=== PATIENT | female | born 1960 | race Caucasian/White ===

== ENCOUNTER → 2022-05-07 01:56 | Outpatient (CLI) | payer MEDICAID, SELFPAY ==
--- NOTE | 2022-05-07 08:15 | DI.CT_ITS ---
Exam(s) CT HEAD WO/W EXAM: CT HEAD WO/W CLINICAL HISTORY: stated hx of brain tumor? Pt poor historian,headache, r51.9. TECHNIQUE: Imaging Protocol: Axial computed tomography images of the with coronal and sagittal refo rmatted images were created and reviewed. CONTRAST MATERIAL: Intravenous: Omnipaque 350 Contrast volume:100 ml COMPARISON: No exams were available for comparison FINDINGS: Ventricles and Extra axial spaces: Normal in size and morphology for the patient's age. There is a qu estion of small bilateral choroid plexus cysts without significant dilatation of the ventricles. Thi s is of doubtful clinical significance. Hemorrhage: None. Cerebral parenchyma: Normal. Enhancement: No suspicious enhancement. Midline shift: None. Brainstem/Cerebellum: Normal. Calvarium: Normal. Visualized Paranasal sinuses/Mastoids: Clear. IMPRESSION: No evidence of a brain tumor, encephalomalacia or craniotomy defect. Small bilateral choroid plexus cysts, incidental finding.. RADIATION DOSE DELIVERED: 1,278.35mGy.cm Total DLP 1,278.35mGy.cm Total DLP DATA REPOSITORY: All CT scans at this facility are submitted to the National Radiology Data Registry (NRDR) Dose Index Registry (DIR) with the [employer] (ACR). RADIATION OPTIMIZATION: All CT scans at this facility use at least one of these dose optimization te chniques: automated exposure control; mA and/or kV adjustment per patient size (includes targeted exa ms where dose is matched to clinical indication); or iterative reconstruction.
[2022-05-07] MEDS: Omnipaque 350 MG/ML 100 ML BTL IV (15:56)
== END ==
PROVIDERS: PCP Nurse Practitioner; Visit Provider Nurse Practitioner
DX: R51.9 Headache, unspecified (principal)
CPT/HCPCS: 70470; J3490

== ENCOUNTER → 2022-05-20 01:10 | Outpatient (CLI) | payer MEDICAID, SELFPAY ==
--- NOTE | 2022-05-20 07:15 | DI.MAMMO_ITS ---
Exam(s) MAMMO SCREENING EXAM: MAMMO SCREENING CLINICAL HISTORY: screening,Z12.39. TECHNIQUE: Bilateral full field digital CC and MLO mammographic images were obtained with 3D tomosyn thesis and utilizing computer aided detection (CAD). COMPARISON: None. This is a baseline mammogram on 61-year-old patient FINDINGS: There are no CAD designations. There are no new spiculated masses nor malignant appearing microcalcification groups. There is no significant architectural distortion nor skin thickening-retraction. IMPRESSION: No radiographic evidence of malignancy. BI-RADS Category 1 - Negative Breast Density - Category B - Scattered areas of fibroglandular density Breast density Category C or D implies that the patient has dense breast tissue. Dense breast tissue can make it harder to find cancer on a mammogram. Dense breast tissue is also associated with an incr eased risk of breast cancer. This information about the result of the mammogram report was provided to the patient to raise their awareness. Use this report when you speak with the patient about their risks for breast cancer, which includes their family history. At that time, you may recommend additional screening tests (Ultrasoun d or MRI) as these tests may add significant information. A negative radiographic report should not delay biopsy if a dominant or clinically suspicious mass is present. Up to ten percent of cancers are not identified on mammography. A negative report may reinforce clinical impression. Adenosis and dense breasts may obscure an underlying neoplasm. False positive reports average 6 to 10%. Patient will receive a letter notifying them of these results.
== END ==
PROVIDERS: PCP Nurse Practitioner; Visit Provider Nurse Practitioner
DX: Z12.31 Encounter for screening mammogram for malignant neoplasm of breast (principal)
CPT/HCPCS: 77063; 77067

== ENCOUNTER → 2022-06-17 02:07 | Outpatient (CLI) | payer MEDICAID, SELFPAY ==
--- NOTE | 2022-06-17 07:45 | DI.RAD_ITS ---
Exam(s) XR LUMBAR SPINE COMPLETE EXAM: XR LUMBAR SPINE COMPLETE CLINICAL HISTORY: low back pain,scoliosis, m41.9. TECHNIQUE: 2D digital imaging was performed. Five views. COMPARISON: No exams were available for comparison FINDINGS: BONES: No fracture or destructive lesion. No compression fracture. Endplate osteophytes are noted th roughout. DISKS: Severe narrowing of the L4-5 disc space eccentric toward the right. Severe narrowing of the L 5-S1 disc space. Mild narrowing of the L1-2 and L2-3 disc spaces eccentric toward the left. ALIGNMENT: This dextroscoliosis centered at the thoracolumbar junction. No spondylolysis or spondylo listhesis. SOFT TISSUE: Normal. SI joints: Spurring inferior SI joints. IMPRESSION: Degenerative changes and scoliosis. DATA REPOSITORY: RADIATION DOSE DELIVERED:
--- NOTE | 2022-06-17 07:45 | DI.RAD_ITS ---
Exam(s) XR THORACIC SPINE COMPLETE EXAM: XR THORACIC SPINE COMPLETE CLINICAL HISTORY: scoliosis,back pain, m41.9. TECHNIQUE: 2D digital imaging was performed. Three views. COMPARISON: No exams were available for comparison FINDINGS: BONES: There is no fracture or destructive lesion. Endplate osteophytes are noted in the mid to lower thoracic region. ALIGNMENT: Severe dextro rotoscoliosis at the thoracolumbar junction. Moderate leftward curvature in the thoracic region. SOFT TISSUE: Visualized lungs are clear. IMPRESSION: Severe scoliosis. DATA REPOSITORY: RADIATION DOSE DELIVERED:
== END ==
PROVIDERS: PCP Nurse Practitioner; Visit Provider Family Medicine
DX: M41.86 Other forms of scoliosis, lumbar region; M41.84 Other forms of scoliosis, thoracic region; M47.816 Spondylosis without myelopathy or radiculopathy, lumbar region
CPT/HCPCS: 72072; 72110

== ENCOUNTER 2022-10-17 00:20 | Outpatient (CLI) | payer MEDICAID, SELFPAY ==
--- NOTE | 2022-10-17 | DI.CT_ITS ---
Exam(s) CT THORACIC SPINE WO EXAM: CT THORACIC SPINE WO CLINICAL HISTORY: SCOLIOSIS OF THORACOLUMBAR REGION DUE TO DEGENERATIVE DISEASE, M41.55. TECHNIQUE: Imaging Protocol: Axial computed tomography images with coronal and sagittal reformatted images were created and reviewed. COMPARISON: CR XR THORACIC SPINE COMPLETE from 06/17/2022 FINDINGS: Bones: No fractures or dislocations are seen. There is a reverse S-type scoliosis of the thoracic spi ne. There are degenerative changes present throughout the thoracic spine with disc space narrowing a nd marginal osteophytes present. There is mild neural foraminal narrowing on the right at C4-5 and C 5-C6. Soft tissues: The soft tissues of the chest are unremarkable. No large disk herniations are identifie d. IMPRESSION: 1. Multilevel degenerative changes in the lumbar spine. 2. Reverse S-type scoliosis of the thoracic spine. RADIATION DOSE DELIVERED: Total DLP Total DLP DATA REPOSITORY: All CT scans at this facility are submitted to the National Radiology Data Registry (NRDR) Dose Index Registry (DIR) with the [employer] (ACR). RADIATION OPTIMIZATION: All CT scans at this facility use at least one of these dose optimization te chniques: automated exposure control; mA and/or kV adjustment per patient size (includes targeted exa ms where dose is matched to clinical indication); or iterative reconstruction.
--- NOTE | 2022-10-17 | DI.CT_ITS ---
Exam(s) CT LUMBAR SPINE WO EXAM: CT LUMBAR SPINE WO CLINICAL HISTORY: SCOLIOSIS OF THORACOLUMBAR REGION,DDD,M41.55,DIFFUSE SPINE PAIN,ABNL POSTUR. TECHNIQUE: Imaging Protocol: Axial computed tomography images with coronal and sagittal reformatted images were created and reviewed. COMPARISON: CR XR LUMBAR SPINE COMPLETE from 06/17/2022 FINDINGS: Bones: No fractures or dislocations are seen. There is a right convex curvature of the upper thoracic spine. No suspicious lytic or sclerotic lesions are seen. Mild degenerative changes are present th roughout the spine with endplate osteophytes present. There is a vacuum disc and disc space narrowin g at L5-S1. No significant central spinal canal stenosis is present. There is mild narrowing of the right L5-S1 neural foramen. The remaining neural foramen are patent. Soft tissues: The soft tissues of the visualized abdomen and chest are unremarkable. No large disk he rniations are identified. IMPRESSION: 1. No acute fracture or subluxation in the lumbar spine. 2. Mild degenerative changes seen in the lumbar spine. 3. Mild narrowing of the right L5-S1 neural foramen. Otherwise no significant central spinal canal o r neural foraminal stenosis. RADIATION DOSE DELIVERED: 1643.86 mGy.cm Total DLP 1643.86 mGy.cm Total DLP DATA REPOSITORY: All CT scans at this facility are submitted to the National Radiology Data Registry (NRDR) Dose Index Registry (DIR) with the [employer] (ACR). RADIATION OPTIMIZATION: All CT scans at this facility use at least one of these dose optimization te chniques: automated exposure control; mA and/or kV adjustment per patient size (includes targeted exa ms where dose is matched to clinical indication); or iterative reconstruction.
== END 2022-10-17 00:40 ==
LOC: DI 00:20
PROVIDERS: PCP Nurse Practitioner Family; Visit Provider Nurse Practitioner
DX: M47.816 Spondylosis without myelopathy or radiculopathy, lumbar region (principal); M41.84 Other forms of scoliosis, thoracic region
CPT/HCPCS: 72128; 72131

== ENCOUNTER 2022-10-17 00:21 | Outpatient (CLI) | payer MEDICAID, SELFPAY ==
--- NOTE | 2022-10-17 08:15 | DI.CTLCSR_ITS ---
Exam(s) CT CHEST LUNG CANCER SCREEN EXAM: CT CHEST LUNG CANCER SCREEN CLINICAL HISTORY: Screening for lung cancer, current smoker, Z72.0 TECHNIQUE: Imaging Protocol: Axial computed tomography images with coronal and sagittal reformatted images were created and reviewed COMPARISON: No exams were available for comparison FINDINGS: Tracheobronchial tree: Patent where visualized. Pulmonary parenchyma: No consolidation or dominant measurable mass. No architectural distortion. Lung Nodules: None. Mediastinum and Rita: No dominant adenopathy or fluid collection. The esophagus is unremarkable. Thyroid gland: Unremarkable. Lymph nodes: Unremarkable. Pleura: No effusion or pneumothorax. Heart: The heart is not dilated. No coronary artery calcifications are seen. No pericardial effusion . Aorta: Thoracic aorta non-dilated.Mild atherosclerosis. Upper abdomen: Unremarkable. Soft Tissues: Unremarkable. Bones: Within normal limits. There is a reverse S-type scoliosis of the thoracic spine. IMPRESSION: No pulmonary nodules. Lung RADS Cat 1 - Negative: No nodules and definitely benign nodules Lung-RADS 1.0 CATEGORIES: Category 0 - Prior chest CT exam(s) being located for comparison. Category 1 - Annual screening in 12 months. No nodules or definitely benign nodules. Category 2 - Annual screening in 12 months. Benign appearance. Nodules with low likelihood of becomin g active cancer. Category 3 - 6-month follow-up. Probably benign. Short-term follow-up suggested. Nodules with low lik elihood of becoming active cancer. Category 4A - 3-month follow-up and CT/PET if >8 mm in size. Suspicious finding. Findings which requi re additional testing. Category 4B - Findings which require additional testing and tissue sampling. Suspicious finding. Category 4X - Category 3 or 4 nodules with additional features or imaging findings that increases the suspicion of malignancy. Modifier S- Potentially clinically significant finding. (Non lung cancer) RADIATION DOSE DELIVERED: 82.95mGy.cm Total DLP 82.95mGy.cmTotal DLP DATA REPOSITORY: All CT scans at this facility are submitted to the National Radiology Data Registry (NRDR) Dose Index Registry (DIR) with the [employer] (ACR). RADIATION OPTIMIZATION: All CT scans at this facility use at least one of these dose optimization te chniques: automated exposure control; mA and/or kV adjustment per patient size (includes targeted exa ms where dose is matched to clinical indication); or iterative reconstruction.
== END 2022-10-17 00:41 ==
LOC: DI 00:21
PROVIDERS: PCP Nurse Practitioner Family; Visit Provider Nurse Practitioner Family
DX: F17.210 Nicotine dependence, cigarettes, uncomplicated (principal); Z12.2 Encounter for screening for malignant neoplasm of respiratory organs
CPT/HCPCS: 71271

== ENCOUNTER 2022-12-03 02:53 | Outpatient (CLI) | payer MEDICAID, SELFPAY ==
[2022-12-03 12:31] LABS: Hemoglobin A1C 5.7 % (<5.7)
[2022-12-03 12:36] LABS: ALT 15 U/L (14-59); AST 8 U/L (15-37); Albumin 3.4 g/dL (3.4-5.0); Alkaline Phosphatase 99 U/L (46-116); Anion Gap 8.4 mmol/L (3-11); BUN 25 mg/dL (7-18); Bilirubin, Total 0.2 mg/dL (0.2-1.0); CO2 28.6 mmol/L (21.0-32.0); CREATININE 1.5 mg/dL (0.55-1.02); Calcium 9.2 mg/dL (8.5-10.1); Calculated LDL 128 mg/dL (<100); Chloride 104 mmol/L (98-107); Cholesterol 202 mg/dL (<200); Estimated GFR 39.89 (mL/min/1.73m2); Glucose 105 mg/dL (74-106); HDL Cholesterol 59 mg/dL (40-60); Potassium 4.2 mmol/L (3.5-5.1); Sodium 141 mmol/L (136-145); Total Protein 7.5 g/dL (6.4-8.2); Triglyceride 78 mg/dL (<150)
== END 2022-12-03 02:54 | disposition home or self-care (01) ==
PROVIDERS: PCP Nurse Practitioner Family; Visit Provider Nurse Practitioner
DX: Z13.1 Encounter for screening for diabetes mellitus (principal); I10 Essential (primary) hypertension; Z13.6 Encounter for screening for cardiovascular disorders
CPT/HCPCS: 36415; 80053; 80061; 83036

== ENCOUNTER 2023-02-03 04:53 | Outpatient (CLI) | payer MEDICAID, SELFPAY ==
[2023-02-03 12:54] LABS: Anion Gap 10.6 mmol/L (3-11); BUN 28 mg/dL (7-18); CO2 25.4 mmol/L (21.0-32.0); CREATININE 1.5 mg/dL (0.55-1.02); Calcium 9.3 mg/dL (8.5-10.1); Chloride 103 mmol/L (98-107); Estimated GFR 39.65 (mL/min/1.73m2); Glucose 97 mg/dL (74-106); Potassium 4.4 mmol/L (3.5-5.1); Sodium 139 mmol/L (136-145)
== END 2023-02-03 04:54 | disposition home or self-care (01) ==
LOC: LOS 04:53
PROVIDERS: PCP Nurse Practitioner Family; Visit Provider Nurse Practitioner Family
DX: R94.4 Abnormal results of kidney function studies (principal); I10 Essential (primary) hypertension; K21.9 Gastro-esophageal reflux disease without esophagitis
CPT/HCPCS: 36415; 80048

== ENCOUNTER 2023-05-11 11:29 | Emergency (ER) | payer MEDICAID, SELFPAY ==
[2023-05-11 11:37] VITALS: BP 162/99; PULSE 90; RESP 20; TEMP 36.4; O2SAT 98
--- NOTE | 2023-05-11 12:03 | ED.GENADUL_ITS ---
Discharge Plan Disposition Patient Disposition: Home Condition: Stable Discharge Details Clinical Impression: Depression, Anemia Primary Care Provider: Isaiah Paula ED Provider: Mark Moreno Home Meds and New Rx's Prescriptions: Continued albuterol sulfate 1.25 mg/3 mL solution for nebulization 1.25 mg inhalation QID PRN (Reason: shortness of breath or wheezing) Qty: 90 2RF budesonide-formoterol [Symbicort] 160-4.5 mcg/actuation HFA aerosol inhaler 2 puff inhalation BID Qty: 10.2 11RF diclofenac potassium 50 mg tablet 50 mg PO BID Qty: 60 2RF lisinopril-hydrochlorothiazide 20-12.5 mg tablet 1 tab PO DAILY Qty: 90 3RF omeprazole 20 mg tablet,delayed release (DR/EC) 20 mg PO DAILY Qty: 90 4RF betamethasone dipropionate 0.05 % cream 1 applic topical DAILY PRN (Reason: skin irritation) Qty: 45 0RF diazepam 10 mg tablet 10 mg PO TID PRN (Reason: anxiety) Qty: 30 0RF Rx Instructions: use sparingly lurasidone 40 mg tablet 20 mg PO QPM Qty: 30 2RF Rx Instructions: must administer with food (at least 350 calories) zolpidem 10 mg tablet 10 mg PO QHS PRN (Reason: sleep) Qty: 30 2RF lorazepam 1 mg tablet 1 mg PO Q8H PRN PRN Patient Comments: TAKE ONE TABLET BY MOUTH EVERY 8 HOURS NEEDED FOR ANXIETY zolpidem 10 mg tablet 10 mg PO 1XD PRN (Reason: Sleep) Patient Comments: TAKE ONE TABLET BY MOUTH AT BEDTIME NEEDED FOR SLEEP Discharge Instructions Instructions: Depression (ED), Anemia (ED) Additional Instructions: Please follow-up with [facility] services. Please contact your primary care physician to arrange follow-up. Return to the ER immediately for any worsening or new concerning symptoms. Referrals: [facility] [Outside] Isaiah Paula, GUIDE ESCORT [Primary Care Provider] - Medical Decision Making [id number]??62-year-old female with history of bipolar disorder with psychotic features, treated with lurasidone, here at the prompting of PCP for severe depression without suicidality. Patient is here voluntarily seeking treatment. Patient is not actively suicidal. There is no indication for one-to-one patient observation at this time. Standard safety plan has been initiated. I will contact [facility] services to request crisis evaluation. -- Labs reviewed and discussed with the patient. Anemia noted. I recommended patient follow-up with PCP. 1440 --patient was seen by [facility] crisis screener Muna, who is recommending outpatient follow-up with [facility]. Patient did recently have her medication dosing increased today by PCP. Patient comfortable with plan as outlined. Usual customary discharge instructions were reviewed. --I spoke with the patient's PCP and discussed discharge plan and will followup on anemia. HPI General Mode of arrival: ambulatory . Date/Time Provider Initiated Documentation: 05/11/23 11:50 . Limitations to Documentation: no limitations . Information obtained by: patient, family (daughter) and RN/MD . HPI Narrative: 62-year-old female with history of bipolar disorder, here with chief complaint of depression. Patient has severe depression over the past few weeks. Patient states her March 04 and depression has worsened since that time. She describes being in a black hole that she cannot get out of. Patient is severe. She has not had any suicidal thoughts. No homicidal thoughts. Patient went to PCP today for her symptoms and requesting an increase in lurasidone for her symptoms. PCP sent here for further evaluation and treatment. Related Data Home Medications Medication Instructions Recorded Confirmed albuterol sulfate 1.25 mg/3 mL 1.25 mg (3 mL) inhalation QID PRN 06/03/2204/26 solution for nebulization shortness of breath or wheezing #90 mL budesonide-formoterol HFA 160 2 puff inhalation BID #10.2 grams 11/28/22 05/11/23 mcg-4.5 mcg/actuation aerosol inhaler (Symbicort) diclofenac potassium 50 mg tablet 50 mg PO BID #60 tabs 11/28/22 05/11/23 lisinopril 20 1 tab PO DAILY #90 tabs 11/28/22 05/11/23 mg-hydrochlorothiazide 12.5 mg tablet omeprazole 20 mg tablet,delayed 20 mg PO DAILY #90 tabs 11/28/22 05/11/23 release betamethasone dipropionate 0.05 % 1 applic topical DAILY PRN skin 03/03/23 05/11/23 topical cream irritation #45 grams diazepam 10 mg tablet 10 mg PO TID PRN anxiety #30 tabs 03/10/23 05/11/23 lorazepam 1 mg tablet 1 mg PO Q8H PRN PRN 05/11/23 05/11/23 lurasidone 40 mg tablet 20 mg PO QPM #30 tabs 05/11/23 05/11/23 zolpidem 10 mg tablet 10 mg PO 1XD PRN Sleep 05/11/23 05/11/23 zolpidem 10 mg tablet 10 mg PO QHS PRN sleep #30 tabs 05/11/23 05/11/23 Previous Rx's Medication Instructions Recorded albuterol sulfate 1.25 mg/3 mL 1.25 mg (3 mL) inhalation QID PRN 06/03/22 solution for nebulization shortness of breath or wheezing #90 mL budesonide-formoterol HFA 160 2 puff inhalation BID #10.2 grams 11/28/22 mcg-4.5 mcg/actuation aerosol inhaler (Symbicort) diclofenac potassium 50 mg tablet 50 mg PO BID #60 tabs 11/28/22 lisinopril 20 1 tab PO DAILY #90 tabs 11/28/22 mg-hydrochlorothiazide 12.5 mg tablet omeprazole 20 mg tablet,delayed 20 mg PO DAILY #90 tabs 11/28/22 release betamethasone dipropionate 0.05 % 1 applic topical DAILY PRN skin 03/03/23 topical cream irritation #45 grams diazepam 10 mg tablet 10 mg PO TID PRN anxiety #30 tabs 03/10/23 lurasidone 40 mg tablet 20 mg PO QPM #30 tabs 05/11/23 zolpidem 10 mg tablet 10 mg PO QHS PRN sleep #30 tabs 05/11/23 Allergies Allergy/AdvReac Type Severity Reaction Status Date / Time amoxicillin Allergy Unknown Unverified 05/11/23 13:07 acetaminophen [From Vicodin] Allergy Verified 05/11/23 13:07 hydrocodone [From Vicodin] Allergy Verified 05/11/23 13:07 oxycodone [From Percocet] Allergy Verified 05/11/23 13:07 Penicillins Allergy Verified 05/11/23 13:07 General Stated Complaint: PsychEval YUNG: 2 Review of Systems All systems reviewed & are unremarkable except as noted in HPI and below Constitutional Constitutional: Denies fever(s) Psychiatric Psychiatric: Reports as per HPI PFSH All Active Problems (Updated 05/11/23 @ 14:21 by Mark Moreno MD) Palpitations (Acute) Tobacco abuse (Acute) 40+ years of 0.5-2 ppd Asthma (Chronic) Insomnia (Acute) Anxiety attack (Acute) Prediabetes (Acute) Atypical chest pain (Acute) Plantar fasciitis (Acute) Scoliosis (Acute) High risk medication use (Acute) Sleep apnea, unspecified (Acute) At risk for falls (Acute) Hypertension (Chronic) Obesity (Chronic) Plaque psoriasis (Acute) Bunion, right foot (Acute) GERD (gastroesophageal reflux disease) (Chronic) Bipolar disorder with psychotic features (Acute) Chronic kidney disease (CKD) stage G3b/A1, moderately decreased glomerular filtration rate (GFR) between 30-44 mL/min/1.73 square meter and albuminuria creatinine ratio less than 30 mg/g (Acute) Heart murmur (Acute) Depression (Chronic) Anemia (Chronic) Medical History Bipolar disease, chronic Decreased GFR Deformity of bone of foot Dental infection Depression Hair loss Hemorrhoids Left shoulder pain Varicose vein of leg Venous insufficiency of both lower extremities Surgical History History of tubal ligation Family History Mother Asthma Depression Father Asthma Diabetes Hyperlipidemia Sister Cancer Hyperlipidemia Depression Sister No problems noted. Brother Substance use disorder Asthma Depression Social History Smoking/Tobacco Use Status: Current every day Tobacco Type: cigarettes and e- cigarettes Smoking risk assessment performed?: Yes Alcohol Intake: never Drug use: Never Substance use type: does not use Caregiver/Support person: No Housing: apartment Pets and animals: No Sexually active: No How often do you talk on the phone with friends or family?: decline to answer How often do you get together with friends or relatives?: decline to answer Do you belong to any clubs or organized social groups?: no Panel score (0-1 are the most socially isolated patients): 0 What type of physical activity do you participate in: none Samantha/Congregational: No preference Seatbelt use: always Drive intox or ride w/intox oil transport driver: No Exam Const General: cooperative [facility] Head: normocephalic and atraumatic Mouth: moist mucous membranes Eyes Conjunctivae: normal conjunctivae Sclera: normal sclerae Neck Neck: trachea midline and supple Resp Auscultation: clear to auscultation bilaterally, no rales, no rhonchi and no wheezes Cardio Rate: regular rate and not tachycardic Rhythm: regular rhythm GI Palpation: soft, not firm, no guarding, no masses, not rigid and nontender Skin General skin exam: no rashes or lesions noted Neuro General: patient alert, patient awake, patient oriented x3 and tone normal Extrem General: no edema Psych Appearance: grossly normal Mental Status: mental status grossly normal and other (depression) Speech and Movement: speech and movement normal Mood: other (depression) Affect: sad Course Vital Signs Vital signs: Vital Signs Temperature 36.4 C 05/11/23 11:37 Pulse 90 05/11/23 11:37 Respiratory Rate 20 05/11/23 11:37 Blood Pressure 162/99 H 05/11/23 11:37 Pulse Oximetry 98 05/11/23 11:37 Temperature 36.4 C 05/11/23 11:37 Temperature Source Oral 05/11/23 11:37 Pulse 90 05/11/23 11:37 Respiratory Rate 20 05/11/23 11:37 Respiratory Effort Normal 05/11/23 11:42 Blood Pressure 162/99 H 05/11/23 11:37 Blood Pressure Position Sitting 05/11/23 11:37 Pulse Oximetry 98 05/11/23 11:37 Oxygen Delivery Method Room Air 05/11/23 11:37 Oxygen Flow Rate 0 05/11/23 11:37
[2023-05-11 12:47] LABS: Abs Immature Grans 0.04 10^3/uL (0.0-0.06); Absolute Basophil Count 0.06 10^3/uL (0.0-0.2); Absolute Eosinophil Count 0.25 10^3/uL (0.0-0.7); Absolute Lymphocyte Count 2.66 10^3/uL (1.2-3.4); Absolute Monocyte Count 0.65 10^3/uL (0.1-0.8); Absolute Neutrophil Count 6.06 10^3/uL (1.2-6.7); Basophils % 0.6; Eosinophils % 2.6; HCT 32.4 % (36.0-46.0); Immature Grans % 0.4; Lymphocytes % 27.4; MCH 25.6 pg (27.0-33.0); MCHC 30.9 % (32.0-36.0); MCV 83 fL (80-95); MPV 10.2 fL (8.0-11.0); Monocytes % 6.7; Neutrophils % 62.3; Platelet Count 461 10^3/uL (130-400); RBC 3.91 10^6/uL (3.93-5.22); RDW-SD 48.2 fL; WBC 9.72 10^3/uL (4.4-10.8)
[2023-05-11 13:17] LABS: ALT 16 U/L (14-59); AST 11 U/L (15-37); Albumin 3.4 g/dL (3.4-5.0); Alkaline Phosphatase 119 U/L (46-116); Anion Gap 8.5 mmol/L (3-11); BUN 16 mg/dL (7-18); Bilirubin, Total 0.2 mg/dL (0.2-1.0); CO2 27.5 mmol/L (21.0-32.0); CREATININE 1.1 mg/dL (0.55-1.02); Calcium 9.4 mg/dL (8.5-10.1); Chloride 103 mmol/L (98-107); Estimated GFR 57.52 (mL/min/1.73m2); Glucose 119 mg/dL (74-106); Potassium 3.9 mmol/L (3.5-5.1); Sodium 139 mmol/L (136-145); TSH (W/Ref FT4) 5.92 uIU/mL (0.36-3.74); Total Protein 8.1 g/dL (6.4-8.2)
[2023-05-11 13:25] LABS: Bilirubin Negative (Negative); Blood Negative (Negative); Clarity Clear (Clear); Glucose Negative (Negative); Ketones Negative (Negative); Leukocyte Esterase Small (Negative); Nitrite Negative (Negative); Urobilinogen 0.2 mg/dL (Up to 0.2); pH 5.5 (5-8)
[2023-05-11 13:32] LABS: Bacteria Moderate HPF (Negative); Crystals Negative HPF (Negative); Epithelial Cells Few HPF (Negative); Other Cells Negative (Negative); RBC Negative HPF (0-2)
[2023-05-11 13:33] LABS: C & S Indicated? Yes; Casts Negative LPF (Negative); Mucus Trace (Negative)
--- NOTE | 2023-05-11 14:58 | PDOC.MHCN ---
Date of service: 05/11/23 Time of Service: 14:59 PHQ-9 Over the last 2 weeks, how often have you been bothered by any of the following problems? 1. Little interest or pleasure in doing things: nearly every day 2. Feeling down, depressed, or hopeless: several days 3. Trouble falling or staying asleep, or sleeping too much: not at all 4. Feeling tired or having little energy: nearly every day 5. Poor appetite or overeating: several days 6. Feeling bad about yourself - or that you are a failure or have let yourself and your family down: nearly every day 7. Trouble concentrating on things, such as reading the newspaper or watching television: several days 8. Moving or speaking so slowly that other people could have noticed? - Or the opposite - being so fidgety or restless that you have been moving around a lot more than usual: nearly every day 9. Thoughts that you would be better off or of hurting yourself in some way: several days Total score: 16 PHQ-9 Results: Positive Source: Developed by Drs. Doe Leon, Lucita Way, Deonte Morrison and colleagues, with an educational era from [employer]. Suicide Severity Rate CSSRS Have you wished you were or wished you could go to sleep and not wake up?: Yes Have you actually had any thoughts of killing yourself?: No CSSRS4 Was this within the past three months?: Yes Screening Score Total Score: 4 Screening: Positive Mental Health Emergency Note Release [facility] release signed:: Yes Reason for Visit The client arrived to the ED via her daughter after meeting with her PCP for an increase in depression symptoms and seeking a higher dose of her Latuda. She is seeking additional services and supports. In the last 2 weeks has the pt presented for ES prior to today?: Unknown Client Information Client is: New Non Suicidal Self Injury Current: No History: No Safety Risk/Harm to Self or Others Current Ideation to Harm Self or Others: No Risk: Does risk to harm exist?: No Risk: Low Risk Duty to warn indicated: No Asssessment/Mental Status Appearance: Well groomed Attitude: Cooperative and Friendly Behavior: Unremarkable Speech: Normal Affect: Normal Mood: Depressed Thought process: Goal directed Hallucinations: No Delusions: No Attention: Unremarkable Perception: Not impaired Orientation: Fully orientated Memory: Intact Insight: Good Judgement: Good Neurovegetative Symptoms Sleep: No change Appetitie: No change Interests: Decrease Energy: Decrease Libido: Not applicable Substance Use: Do you use nicotine?: Yes Have you used substances in the last 7 days?: No Additional Issues: Assaultive/Threatening Behavior: No Medical Concerns: No Client engaged in active self harm w/weapon: No Threatening to run away: No Child reported abuse/neglect: No Voluntarily presenting for services: Yes Domestic violence is a concern: No Extreme Psychosis or extreme behavior is present: No Impression The client is a 62 year old, female who lives independently in her apartment in [facility]. She is disabled and new to [facility]. Intake paperwork completed. She has 5 adult children but only two live close by. She reported that she went to her PCP appointment this morning and expressed a need to increase her Latuda due to feeling like she is in a back deep hole and I am in a million tiny pieces. She stated that her PCP did increase her Latuda from 20mg to 40 mg and she needs to pepper picker her new prescription at the pharmacy. The client stated she has felt this way since March 04 when her of 35 years . This was a trying experience for her as her husbands family would not allow her to see him and did not make her aware of his until day's later. The client denied NSSI and HI. She endorsed fleeting SI but is able to tell herself not to think that way. She reported one suicidal attempt in 2001 where she cut her wrists and overdosed on medications. She was hospitalized at [facility] for about 2-weeks voluntarily as a result. She identified her children and grandkids as her deterrents. The client enjoys crocheting, cooking, coloring and has found these now feel more like tasks. Her daughter stated the client also has good intuition. Resources Reosjhon reviewed and given:: [facility] and [facility] Plan/Disposition Recommended Disposition: [facility] Services [facility] Services: Therapy and Psychiatric Evaluation. Plan: The client will be discharged and utilize 988 and [facility] as needed. She was given cards for both. The client will follow up with her PCP in two weeks as scheduled at which time she will follow up regarding her wish to have someone come into her home to help her with cleaning and cooking as she is unable to do this on her own. This clinician will put in referrals for therapy and psychiatry. Person reported agreement to plan: Yes Reports/communication Outcome discussed with: ED/Personnel
--- NOTE | 2023-05-13 08:52 | NUR.NOTE ---
Nursing Note:in chart for antibiotics
== END 2023-05-11 14:45 | disposition home or self-care (01) ==
PROVIDERS: Emergency Provider Student in an Organized Health Care Education/Training Program; PCP Nurse Practitioner Family
DX: F32.A Depression, unspecified (principal); D64.9 Anemia, unspecified; Z63.4 Disappearance and death of family member
CPT/HCPCS: 36415; 80053; 99283; 81003; 81015; 84439; 84443; 85025; 87086

== ENCOUNTER → 2023-06-30 00:20 | Outpatient (CLI) | payer MEDICAID, SELFPAY ==
--- NOTE | 2023-06-30 07:15 | DI.US_ITS ---
APPROVED REPORT EXAM: Comprehensive 2D, Doppler, and color-flow Echocardiogram Patient Location: Out-Patient Breastfeeding Peer Counselor: Rosemary Whiteside RDCS (AE) Indications: New heart murmur, smoker Other Information Study Quality: Adequate Conclusion Normal left ventricular wall thickness and chamber size. Ejection fraction is 60%. Wall motion is n ormal Normal right ventricular size and systolic function Both atria are normal in size There is no structural or hemodynamically significant valvular disease Estimated right ventricular systolic pressure is 30 mmHg Wall motion Left Ventricle The left ventricle is normal size. The left ventricular systolic function is normal. The left ventric ular ejection fraction is within the normal range. There is normal left ventricular wall thickness. T here is normal LV segmental wall motion. There is no ventricular septal defect visualized. LVEF is 60 %. Right Ventricle The right ventricle is normal size. The right ventricular systolic function is normal. Atria The left atrium size is normal. The right atrium size is normal. The interatrial septum is intact wit h no evidence for an atrial septal defect. Aortic Valve The aortic valve is normal in structure. Aortic valve is trileaflet. No hemodynamically significant valvular aortic stenosis. No aortic regurgitation is present. Mitral Valve The mitral valve is normal in structure. No evidence of mitral valve stenosis. Trace mitral regurgita tion. Tricuspid Valve The tricuspid valve is normal in structure. There is no tricuspid valve stenosis. Trace tricuspid reg urgitation. Pulmonic Valve The pulmonary valve is normal in structure. There is no pulmonic valvular stenosis. There is no pulmo arnaud valvular regurgitation. Great Vessels The aortic root is normal in size. The ascending aorta is normal in size. Aortic arch is normal in ca liber. IVC is normal in size and collapses >50% with inspiration. Pericardium There is no pericardial effusion. 2D Dimensions IVSD d PLAX 0.83 cm F: 0.6-1.0 Ao Root d 2.53 cm F: 2.7 - 3.3 LVPW d PLAX 0.76 cm F: 0.6 - 1.0 Ao Asc Diam d 3.25 cm F: 2.3 - 3.1 LVID d PLAX 4.63 cm F: 3.8 - 5.2 LVDs 3.15 cm F: 2.2 - 3.5 LV EF Teichholz 60.1 % FS 31.99 % LV EDV (Teich) 98.6 mL LV ESV (Teich) 39.3 mL M-Mode TAPSE 2.32 cm (M/F) >1.7 Auto EF LV EDV A4C 93.8 mL LV EDV A2C 108.7 mL LV EDV BP 103.6 mL LV ESV A4C 38.0 mL LV ESV A2C 42.6 mL LV ESV BP 40.4 mL LVEF(%) A4C 59.5 % LVEF(%) A2C 60.8 % LVEF(%) BP 61.0 % LV SV A4C 55.8 ml LV SV A2C 66.1 ml LV SV BP 63.2 ml LV CO A4C 3.6 L/min LV CO A2C 4.1 L/min LV CO BP 3.8 L/min HR A4C 64.75 BPM HR A2C 61.33 BPM LV EDV Index (BP) LA Volume LA Length A4C 5.2 cm LA Length A2C 5.1 cm LA Area A4C s 18.04 cm2 LA Area A2C s 16.05 cm2 LA Vol A4C A-L 52.90 mL LA Vol A2C A-L 43.15 mL LA Vol Biplane A-L 48.5 mL LA Vol/BSA A4C A-L LA Vol/BSA A2C A-L LA Vol/BSA BP A-L 23.6 mL/m2 LA Vol A4C MOD 49.6 mL LA Vol A2C MOD 40.9 mL LA Vol BP MOD 45.7 mL RA Volume RA Area A4C 10.6 cm2 RA ESV A4C (A-L) 23.6mL RA Vol/BSA A4C A-L RA Length A4C 4.0 cm RA ESV A4C (MOD) 22.0mL LV Diastology MV E' medial 0.080 (>0.07 m/s) MV E Vmax 0.84 (0.4-1.3 m/s) MV E/E' MED 10.41 (<14) MV A Vmax 0.80 (0.4-1.3 m/s) MV E' lateral 0.125 (>0.1 m/s) E/A Ratio 1.0 MV E/E' LAT 6.69 (<14) MV E' Average 0.103 m/s MV E/E'(average) 8.14 Aortic Valve AoV Vmax 2.07 m/s LVOT Vmax 1.43 m/s AoV Peak Grad 17.1 mmHg LVOT Peak Grad 8.2 mmHg AoV Area (Vmax) 1.98 cm2 LVOT VTI 0.345 m AoV VTI 0.425 m LVOT Mean Grad 5.0 mmHg AoV Mean Dell. 1.41 m/s LVOT SV 98.31 mL AoV Mean Grad 9.2 mmHg LVOT Diam s 1.90 cm AoV Area (VTI) 2.31 cm2 Velocity Ratio 0.69 Mitral Valve MV DT 229 (160-240 msec) MV Vmax TIPS 0.86 m/s MV Mean Grad 1.2 (<2mmHg) MV VTI 0.279 m Pulmonary Valve PV Vmax 1.40 (0.5-1.5 m/s) RVOT Vmax 1.07 m/s PV Peak Grad 7.8 mmHg RVOT Peak Gr. 4.6 mmHg PV Mean Dell 0.98 m/s RVOT VTI 0.232 m PV Mean Grad 4.4 mmHg RVOT Mean Gr. 2.7 mmHg Tricuspid Valve RA Pressure 3.00 mmHg TR Vmax 2.58 m/s TV S' 0.14 m/s TR Peak Grad 26.5 mmHg RVSP (TR) 29.6 mmHg
== END ==
PROVIDERS: PCP Nurse Practitioner Family; Visit Provider Nurse Practitioner Family
DX: R01.1 Cardiac murmur, unspecified (principal)
CPT/HCPCS: 93306

== ENCOUNTER → 2023-07-06 03:10 | Outpatient (CLI) | payer MEDICAID, SELFPAY ==
--- NOTE | 2023-07-06 08:00 | DI.US_ITS ---
Exam(s) US PELVIS LIMITED EXAM: US PELVIS LIMITED CLINICAL HISTORY: ABNL vaginal bleeding, urine negative for blood,N93.9. TECHNIQUE: Limited pelvic ultrasound was performed. Transabdominal only. Patient apparently declin ed transvaginal study. COMPARISON: None FINDINGS: Uterus is anteverted and nongravid, measuring 8 cm length by 4 cm AP x 5 cm wide. There are no obvio us uterine fibroids evident on this transabdominal pelvic study. Endometrial thickness is 7 mm. There is no obvious fluid in the endometrial canal.. Right ovary measures 3.6 x 3.1 x 2.8 cm. Poorly visualize due to body habitus and adjacent bowel gas . Left ovary measures 3 x 2.8 x 2.8 cm. Also less than optimally visualized due to overlying bowel gas and body habitus. IMPRESSION: 1. Study limited by body habitus and bowel gas and the fact that the patient declined transvaginal st udy. 2. There are no obvious uterine fibroids. Endometrial stripe thickness is 7 mm, slightly prominent a nd requiring follow-up in a few months time. There is no obvious fluid in the endometrial cavity. 3. No obvious adnexal abnormalities evident and no free fluid. DATA REPOSITORY:
== END ==
PROVIDERS: PCP Nurse Practitioner Family; Visit Provider Nurse Practitioner Family
DX: N93.9 Abnormal uterine and vaginal bleeding, unspecified (principal)
CPT/HCPCS: 76857

== ENCOUNTER → 2023-11-11 01:22 | Outpatient (CLI) | payer MEDICAID, SELFPAY ==
--- NOTE | 2023-11-11 08:30 | DI.CTLCSR_ITS ---
Exam(s) CT CHEST LUNG CANCER SCREEN EXAM: CT CHEST LUNG CANCER SCREEN CLINICAL HISTORY: Screening for lung cancer,FORMER SMOKER, Z87.891 TECHNIQUE: Imaging Protocol: Axial computed tomography images with coronal and sagittal reformatted images were created and reviewed. Low dose screening protocol. COMPARISON: CT CT CHEST LUNG CANCER SCREEN from 10/17/2022 FINDINGS: Tracheobronchial tree: No bronchiectasis or mucus plugging.. Mediastinum and Rita: No dominant adenopathy or fluid collection. Pulmonary parenchyma: No consolidation or dominant measurable mass. Mild diffuse emphysematous change s. Lung Nodules: None. Pleura: No effusion. No pneumothorax. Heart: The heart is not dilated. Mild coronary artery calcifications are seen. Small hiatal hernia. Aorta: Thoracic aorta non-dilated.Mild atherosclerotic changes. Upper abdomen: Unremarkable. Bones: Severe scoliosis. Soft Tissues: Unremarkable. IMPRESSION: No suspicious pulmonary nodules. Lung RADS Cat 1 - Negative: No nodules and definitely benign nodules Lung-RADS 1.0 CATEGORIES: Category 0 - Prior chest CT exam(s) being located for comparison. Category 1 - Annual screening in 12 months. No nodules or definitely benign nodules. Category 2 - Annual screening in 12 months. Benign appearance. Nodules with low likelihood of becomin g active cancer. Category 3 - 6-month follow-up. Probably benign. Short-term follow-up suggested. Nodules with low lik elihood of becoming active cancer. Category 4A - 3-month follow-up and CT/PET if >8 mm in size. Suspicious finding. Findings which requi re additional testing. Category 4B - Findings which require additional testing and tissue sampling. Category 4X - Category 3 or 4 nodules with additional features or imaging findings that increases the suspicion of malignancy. Modifier S- Potentially clinically significant findings (non lung cancer) RADIATION DOSE DELIVERED: 78.41mGy.cm Total DLP DATA REPOSITORY: All CT scans at this facility are submitted to the National Radiology Data Registry (NRDR) Dose Index Registry (DIR) with the [employer] (ACR). RADIATION OPTIMIZATION: All CT scans at this facility use at least one of these dose optimization te chniques: automated exposure control; mA and/or kV adjustment per patient size (includes targeted exa ms where dose is matched to clinical indication); or iterative reconstruction.
== END ==
PROVIDERS: PCP Nurse Practitioner Family; Visit Provider Nurse Practitioner Family
DX: Z87.891 Personal history of nicotine dependence (principal); Z12.2 Encounter for screening for malignant neoplasm of respiratory organs
CPT/HCPCS: 71271

== ENCOUNTER 2025-03-27 19:27 | Inpatient (IN) | payer MEDICAID, SELFPAY ==
[2025-03-27] VITALS (34 sets, daily range): BP systolic 113–172; BP diastolic 68–113; PULSE 71–115; RESP 13–31; TEMP 37; O2SAT 92–100
--- NOTE | 2025-03-27 19:15 | RT.EKG_ITS ---
APPROVED REPORT Exam: Resting ECG Reason for Exam: syncope Patient Location: E HR:79 bpm ECG Measurements Heart Rate 79 AXIS PA 159 P 64 QRSd 93 QRS 11 QT 389 T 44 QTc 446 Conclusion Sinus rhythm...normal P axis, V-rate 60- 99 Physician: No STEMI
[2025-03-27] MEDS: Normal Saline 1,000 ML 1000 ML IV (19:59)
[2025-03-27 20:00] LABS: Abs Immature Grans 0.02 10^3/uL (0.0-0.06); Absolute Basophil Count 0.05 10^3/uL (0.0-0.2); Absolute Eosinophil Count 0.25 10^3/uL (0.0-0.7); Absolute Lymphocyte Count 2.86 10^3/uL (1.2-3.4); Absolute Monocyte Count 0.81 10^3/uL (0.1-0.8); Absolute Neutrophil Count 5.65 10^3/uL (1.2-6.7); Basophils % 0.5 %; Eosinophils % 2.6 %; HCT 28.5 % (36.0-46.0); HGB 8.7 g/dL (11.2-15.7); Immature Grans % 0.2 %; Lymphocytes % 29.7 %; MCH 22.8 pg (27.0-33.0); MCHC 30.5 % (32.0-36.0); MCV 75 fL (80-95); MPV 10.5 fL (8.0-11.0); Monocytes % 8.4 %; Neutrophils % 58.6 %; Platelet Count 445 10^3/uL (130-400); RBC 3.81 10^6/uL (3.93-5.22); RDW 19.7 % (11.7-14.6); RDW-SD 53.1 fL; WBC 9.64 10^3/uL (4.4-10.8)
[2025-03-27 20:13] LABS: Anisocytosis 2+; Diff Comment RBC Morph Reviewed; Hypochromasia 1+; Microcytosis 1+
[2025-03-27 20:17] LABS: Bilirubin Negative (Negative); Blood Negative (Negative); Clarity Clear (Clear); Glucose Negative (Negative); Ketones Negative (Negative); Leukocyte Esterase Trace (Negative); Nitrite Negative (Negative); Urobilinogen 0.2 mg/dL (Up to 0.2)
[2025-03-27 20:26] LABS: Bacteria Few HPF (Negative); C & S Indicated? No; Casts Negative LPF (Negative); Crystals Negative HPF (Negative); Epithelial Cells Few HPF (Negative); Mucus Negative (Negative); RBC Negative HPF (0-2); WBC 0-2 HPF (0-5)
[2025-03-27 20:32] LABS: D-Dimer 1184 ng/mlFEU (<500)
[2025-03-27 20:37] LABS: COVID-19 PCR Negative (Negative); Influenza A PCR Negative (Negative); Influenza B PCR Negative (Negative); RSV PCR Negative (Negative)
[2025-03-27 20:38] LABS: Source Nasopharynx
--- NOTE | 2025-03-27 20:45 | RT.EKG_ITS ---
APPROVED REPORT Exam: Resting ECG Reason for Exam: weakness Patient Location: E HR:73 bpm ECG Measurements Heart Rate 73 AXIS SC 159 P 31 QRSd 92 QRS 15 QT 386 T 42 QTc 427 Conclusion Sinus rhythm...normal P axis, V-rate 60- 99 Physician: No STEMI
[2025-03-27 20:47] LABS: ALT 15 U/L (14-59); AST 10 U/L (15-37); Alkaline Phosphatase 129 U/L (46-116); Anion Gap 9.1 mmol/L (3-11); BUN 20 mg/dL (7-18); Bilirubin, Total 0.2 mg/dL (0.2-1.0); CO2 25.9 mmol/L (21.0-32.0); CREATININE 0.8 mg/dL (0.55-1.02); Calcium 8.7 mg/dL (8.5-10.1); Chloride 104 mmol/L (98-107); Estimated GFR 83.26 (mL/min/1.73m2); Glucose 93 mg/dL (74-106); Sodium 139 mmol/L (136-145); TSH 4.05 uIU/mL (0.36-3.74); Total Protein 7.4 g/dL (6.4-8.2); Troponin I 7 ng/L (<or=51)
--- NOTE | 2025-03-27 21:00 | DI.CT_ITS ---
Exam(s) CT CHEST PE CTA EXAM: CT CHEST PE CTA CLINICAL HISTORY: recurrent syncope, post op. TECHNIQUE: Imaging Protocol: Axial CT angiography was performed with multi- slice acquisition and multi-planar reconstructions as well as axial, coronal and sagittal MIP reconstructions. Computer aided detection (CAD) was utilized. CONTRAST MATERIAL: Intravenous: Omnipaque 350 Contrast volume:100 ml COMPARISON: CT CT CHEST LUNG CANCER SCREEN from 11/11/2023 FINDINGS: Exam is somewhat limited by artifact due to spinal rods. Pulmonary Arteries: Some distal branches are obscured by artifact from spinal hardware. No evidence of central filling defects to suggest pulmonary emboli. Mediastinum and Rita: No dominant adenopathy or fluid collection. Pulmonary parenchyma: No consolidation or dominant measurable mass. Expiratory changes. Pleura: No effusion or pneumothorax. Heart: The heart is not dilated. Mild coronary artery calcifications are seen. Aorta: Thoracic aorta non-dilated. No dissection. Mild atherosclerotic changes. Upper abdomen: No acute findings. Right kidney appears somewhat atrophic. Bones: Spinal rods which are new since the prior exam. Scoliosis. Tubes, Catheters, and Lines: None Soft tissues: Unremarkable. IMPRESSION: No visible pulmonary embolism. Suboptimal evaluation of smaller branch vessels is to artifact from spinal rods. The preliminary [facility] report was reviewed. RADIATION DOSE DELIVERED: 191.14mGy.cm Total DLP DATA REPOSITORY: All CT scans at this facility are submitted to the National Radiology Data Registry (NRDR) Dose Index Registry (DIR) with the [employer] (ACR). RADIATION OPTIMIZATION: All CT scans at this facility use at least one of these dose optimization techniques: automated exposure control; mA and/or kV adjustment per patient size (includes targeted exams where dose is matched to clinical indication); or iterative reconstruction.
--- NOTE | 2025-03-27 21:00 | DI.CT_ITS ---
Exam(s) CT BRAIN NECK CTA EXAM: CT BRAIN NECK CTA CLINICAL HISTORY: dizzy. TECHNIQUE: Imaging Protocol: Axial CT angiography was performed with multi- slice acquisition and multi-planar and MIP reconstructions. CONTRAST MATERIAL: Intravenous: Omnipaque 350 Contrast volume:100 ml COMPARISON: CT CT HEAD WO/W from 05/07/2022 FINDINGS: CT Head W/O and W contrast: Ventricles and Extra axial spaces: Normal in size and morphology for the patient's age. Hemorrhage: None. Cerebral parenchyma: No evidence of acute infarct or mass. Old lacunar infarct in the right thalamus. Midline shift: None. Brainstem/Cerebellum: No acute findings.. Calvarium: Normal. Visualized Paranasal sinuses/Mastoids: Mucous retention at the floor of left maxillary sinus. Soft Tissues: Unremarkable. Enhancement: Normal. Venous sinuses are patent. CTA Brain W: Internal Carotid Arteries: Minimal calcification. Right: No aneurysm, occlusion or significant stenosis. Left: No aneurysm, occlusion or significant stenosis. Middle Cerebral Arteries: Right: No aneurysm, occlusion or significant stenosis. Left: No aneurysm, occlusion or significant stenosis. Anterior Cerebral Arteries: Right: No aneurysm, occlusion or significant stenosis. Left: No aneurysm, occlusion or significant stenosis. Posterior cerebral Arteries: Right: No aneurysm, occlusion or significant stenosis. Left: No aneurysm, occlusion or significant stenosis. Vertebral Arteries: Right: No aneurysm, occlusion or significant stenosis. Left: No aneurysm, occlusion or significant stenosis. Basilar Artery: No aneurysm, occlusion or significant stenosis. CTA Neck W: Common Carotid: Right: No dissection, occlusion or significant stenosis. Left: No dissection, occlusion or significant stenosis. External Carotid: Right: No dissection, occlusion or significant stenosis. Left: No dissection, occlusion or significant stenosis. Internal Carotid: Right: No dissection, occlusion or significant stenosis. Left: No dissection or occlusion. Mostly noncalcified plaque the proximal internal carotid artery causing moderate stenosis of approximately 50 percent . Vertebral Artery: Right: No dissection, occlusion or significant stenosis. Left: No dissection, occlusion or significant stenosis. Lung Apices: No acute findings. Bones: No acute abnormality. Degenerative changes. Soft Tissues: Normal. IMPRESSION: 1. CTA brain: Normal CTA examination of the [place]. 2. Head CT: No acute abnormality. Old lacunar infarct in the right thalamus. 3. CTA neck: Mostly soft plaque at the proximal left internal carotid artery causing moderate stenosis. No significant plaque elsewhere. The preliminary [facility] report was reviewed. RADIATION DOSE DELIVERED: 2,194.87mGy.cm Total DLP DATA REPOSITORY: All CT scans at this facility are submitted to the National Radiology Data Registry (NRDR) Dose Index Registry (DIR) with the [employer] (ACR). RADIATION OPTIMIZATION: All CT scans at this facility use at least one of these dose optimization techniques: automated exposure control; mA and/or kV adjustment per patient size (includes targeted exams where dose is matched to clinical indication); or iterative reconstruction.
[2025-03-27] MEDS: Omnipaque 350 MG/ML 100 ML BTL IJ (21:21)
[2025-03-27] MEDS: Omnipaque 350 MG/ML 50 ML BTL IJ (21:22)
[2025-03-27] MEDS: Normal Saline - Diluent 50 ML VIAL IJ ×2 (21:23→21:24)
[2025-03-27] MEDS: Normal Saline Flush 10 ML SYR IVP (21:23)
[2025-03-27 21:37] LABS: Iron 25 ug/dL (50-170); Total Iron Binding Capacity 376 ug/dL (250-450); Transferrin Sat 7 % (15-50)
[2025-03-27 21:54] LABS: Ferritin 6 ng/mL (8-252)
[2025-03-27 21:58] LABS: Troponin I 9 ng/L (<or=51)
--- NOTE | 2025-03-27 23:19 | DI.[facility]_ITS ---
PROCEDURE INFORMATION: Exam: CTA Head Without And With Contrast, Arteriography Exam date and time: 03/27/2025 9:26 PM Age: 64 years old Clinical indication: Dizziness and giddiness; Prior surgery; Surgery date: 1-6 months; Surgery type: Spine surgery sep 14 TECHNIQUE: Imaging protocol: Computed tomographic angiography of the head without and with contrast. Exam focused on the arteries. 3D rendering (Not supervised by radiologist): MIP and/or 3D reconstructed images were created by the technologist. Radiation optimization: All CT scans at this facility use at least one of these dose optimization techniques: automated exposure control; mA and/or kV adjustment per patient size (includes targeted exams where dose is matched to clinical indication); or iterative reconstruction. Contrast material: OMNIPAQUE 350; Contrast volume: 70 ml; Contrast route: INTRAVENOUS (IV); COMPARISON: CT HEAD WO/W 05/07/2022 3:52 PM FINDINGS: ANTERIOR CIRCULATION: Right internal carotid artery: Intracranial segment is patent with no significant stenosis or occlusion. No aneurysm. Right middle cerebral artery: No occlusion or significant stenosis. No aneurysm. Right anterior cerebral artery: No occlusion or significant stenosis. No aneurysm. Left internal carotid artery: Intracranial segment is patent with no significant stenosis. No aneurysm. Left middle cerebral artery: No occlusion or significant stenosis. No aneurysm. Left anterior cerebral artery: No occlusion or significant stenosis. No aneurysm. POSTERIOR CIRCULATION: Right vertebral artery: No occlusion or significant stenosis. No aneurysm. Left vertebral artery: No occlusion or significant stenosis. No aneurysm. Basilar artery: No occlusion or significant stenosis. No aneurysm. Right posterior cerebral artery: No occlusion or significant stenosis. No aneurysm. Left posterior cerebral artery: No occlusion or significant stenosis. No aneurysm. HEAD: Brain: Small old lacunar infarction in the right thalamus. No intracranial hemorrhage or brain edema. Cerebral ventricles: Normal. No ventriculomegaly. Bones: Unremarkable. No acute fracture. Paranasal sinuses: Visualized sinuses are normal. No fluid levels. Mastoid air cells: Partial opacification of the mastoid air cells bilaterally. No perceptible mastoid fracture. No osseous erosion, overlying inflammation, or subperiosteal abscess to indicate mastoiditis. Soft tissues: Unremarkable. IMPRESSION: 1. Small old lacunar infarction in the right thalamus. 2. No intracranial hemorrhage or brain edema. 3. No acute vascular findings. PROCEDURE INFORMATION: Exam: CTA Neck Without And With Contrast Exam date and time: 03/27/2025 9:26 PM Age: 64 years old Clinical indication: Dizziness and giddiness; Prior surgery; Surgery date: 1-6 months; Surgery type: Spine surgery sep 14 TECHNIQUE: Imaging protocol: Computed tomographic angiography of the neck without and with contrast. Exam focused on the cervical segments of the vasculature. 3D rendering (Not supervised by radiologist): MIP and/or 3D reconstructed images were created by the technologist. Radiation optimization: All CT scans at this facility use at least one of these dose optimization techniques: automated exposure control; mA and/or kV adjustment per patient size (includes targeted exams where dose is matched to clinical indication); or iterative reconstruction. Contrast material: OMNIPAQUE 350; Contrast volume: 70 ml; Contrast route: INTRAVENOUS (IV); COMPARISON: CT CHEST LUNG CANCER SCREEN 11/11/2023 2:37 PM FINDINGS: Right common carotid artery: No stenosis. No dissection or occlusion. Right internal carotid artery: No stenosis of the extracranial segment. No dissection or occlusion. Right external carotid artery: No occlusion or stenosis of the origin. Left common carotid artery: No stenosis. No dissection or occlusion. Left internal carotid artery: There is short-segment severe stenosis of proximal left internal carotid artery secondary to mixed but predominantly soft atherosclerotic plaque. Left external carotid artery: No occlusion or stenosis of the origin. Right vertebral artery: No stenosis. No dissection or occlusion. Left vertebral artery: No stenosis. No dissection or occlusion. Soft tissues: Normal. No significant soft tissue swelling. Bones/joints: No acute fracture. IMPRESSION: 1. There is short-segment severe stenosis of proximal left internal carotid artery secondary to mixed but predominantly soft atherosclerotic plaque. 2. No acute vascular findings. REFERENCES: NASCET CRITERIA. The degree of stenosis in the cervical segment of the internal carotid artery is based on NASCET criteria. Normal is no stenosis. Mild is less than 50% stenosis. Moderate is 50-69% stenosis. Severe is 70% to 99% stenosis. Total occlusion is no detectable patent lumen. Dictated and Authenticated by: José Miguel Ramirez MD. Orderin Elena Kim MD
[2025-03-27 23:26] LABS: Abs Immature Grans 0.02 10^3/uL (0.0-0.06); Absolute Basophil Count 0.06 10^3/uL (0.0-0.2); Absolute Eosinophil Count 0.23 10^3/uL (0.0-0.7); Absolute Lymphocyte Count 2.74 10^3/uL (1.2-3.4); Absolute Monocyte Count 0.65 10^3/uL (0.1-0.8); Absolute Neutrophil Count 5.09 10^3/uL (1.2-6.7); Basophils % 0.7 %; Eosinophils % 2.6 %; HCT 26.7 % (36.0-46.0); HGB 8.1 g/dL (11.2-15.7); Immature Grans % 0.2 %; Lymphocytes % 31.2 %; MCH 22.6 pg (27.0-33.0); MCHC 30.3 % (32.0-36.0); MCV 74 fL (80-95); MPV 9.8 fL (8.0-11.0); Monocytes % 7.4 %; Neutrophils % 57.9 %; Platelet Count 436 10^3/uL (130-400); RBC 3.59 10^6/uL (3.93-5.22); RDW 19.3 % (11.7-14.6); RDW-SD 51.8 fL; WBC 8.79 10^3/uL (4.4-10.8)
[2025-03-27 23:45] LABS: Anisocytosis 2+; Diff Comment RBC Morph Reviewed; Hypochromasia 2+; Microcytosis 1+
[2025-03-27 23:47] LABS: Troponin I 8 ng/L (<or=51)
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
[2025-03-28] VITALS (59 sets, daily range): BP systolic 113–170; BP diastolic 48–101; PULSE 62–115; RESP 10–29; TEMP 36.2–36.9; O2SAT 83–100
--- NOTE | 2025-03-28 00:03 | DI.VRAD_ITS ---
PROCEDURE INFORMATION: Exam: CTA Chest With Contrast Exam date and time: 03/27/2025 10:10 PM Age: 64 years old Clinical indication: Prior surgery; Surgery date: 6+ months; Surgery type: Back surgery sep 14 2024; Recurrent syncope, post op September 14 TECHNIQUE: Imaging protocol: Computed tomographic angiography of the chest with contrast. Exam focused on the arteries. 3D rendering (Not supervised by radiologist): MIP and/or 3D reconstructed images were created by the technologist. Radiation optimization: All CT scans at this facility use at least one of these dose optimization techniques: automated exposure control; mA and/or kV adjustment per patient size (includes targeted exams where dose is matched to clinical indication); or iterative reconstruction. Contrast material: OMNIPAQUE 350; Contrast volume: 80 ml; Contrast route: INTRAVENOUS (IV); COMPARISON: CT CHEST LUNG CANCER SCREEN 11/11/2023 2:37 PM FINDINGS: Pulmonary arteries: Within the limits of the exam, no pulmonary embolism is identified. The small and distal pulmonary arteries are partially obscured by streak artifact from spinal fixation hardware and not well evaluated for diagnosis or exclusion of small or distal pulmonary emboli. Aorta: No thoracic aortic aneurysm or dissection. Tortuous descending thoracic aorta, following spinal curvature. Lungs: Platelike and dependent atelectasis. No pulmonary consolidation. Hazy ground-glass opacities in the upper lung zones, nonspecific. Pleural spaces: No pleural effusion or pneumothorax. Heart: Enlarged heart with multichamber dilatation. Lymph nodes: No pathologically enlarged mediastinal or hilar lymph nodes. Diaphragm: Small hiatal hernia. Kidneys: Kidneys only partially included in the field of view but apparently asymmetric with relative atrophy on the right. Bones/joints: S-shaped scoliotic spinal curvature. Long segment posterior fixation hardware with bilateral fixation rods and numerous intrapedicular screws. Associated streak artifact partially obscuring the adjacent thoracic and abdominal contents. Within the limits of the exam, no acute fracture seen. Lower ribs partially excluded from view and incompletely evaluated. Soft tissues: No gross soft tissue mass or fluid collection seen in the chest wall. IMPRESSION: 1. Within the limits of the exam, no pulmonary embolism is identified. That said, the small and distal pulmonary arteries are partially obscured by extensive streak artifact created by spinal fixation hardware and are not well evaluated for diagnosis or exclusion of small or distal pulmonary emboli. 2. Mild hazy ground-glass opacity in the upper lung zones, nonspecific. Microatelectasis resulting from imaging at relatively low lung volumes could account for this appearance although an acute infection or mild alveolar pulmonary is not excluded. No region of kaity pulmonary consolidation is seen. Dictated and Authenticated by: Jaleel Loza MD. Orderin Elena Kim MD
[2025-03-28] MEDS: Ibuprofen 600 MG TAB PO (02:30)
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
--- NOTE | 2025-03-28 03:13 | W.EDPROG ---
Date of service: 03/28/25 Time of Service: 03:13 Medical Decision Making Patient signed out to me pending teleneurology consult. Patient has been seen by neurology and CTA brain and neck have been reviewed. Neurology feels that the stenosis involving the left internal carotid artery is not hemodynamically important and is not causing her symptoms. Have low concern for seizures versus syncope and feel she should be admitted for workup of same. No antiepileptics at this time. Cardiac monitoring and 1 hour EEG recommended. Discussed with hospitalist who will admit to their service. Quality:SDOH Health Related Social Needs: Health related social needs details see note Discharge Plan Disposition Patient Disposition: Admit to [facility] Condition: Stable Discharge Details Clinical Impression: Recurrent episodes of unresponsiveness Primary Care Provider: Isaiah Paula ED Provider: Judy Parker Home Meds and New Rx's Prescriptions: No Action omeprazole 20 mg tablet,delayed release (DR/EC) 20 mg PO DAILY Qty: 90 4RF lisinopril-hydrochlorothiazide 20-12.5 mg tablet 1 tab PO DAILY Qty: 90 3RF budesonide-formoterol [Symbicort] 160-4.5 mcg/actuation HFA aerosol inhaler 2 puff inhalation BID Qty: 10.2 11RF albuterol sulfate 1.25 mg/3 mL solution for nebulization 1.25 mg inhalation QID PRN (Reason: shortness of breath or wheezing) Qty: 90 2RF ibuprofen 400 mg tablet 400 mg PO Q8H PRN (Reason: pain) Qty: 90 4RF cyclobenzaprine 10 mg tablet 10 mg PO DAILY PRN (Reason: muscle spasm) Qty: 14 0RF betamethasone dipropionate 0.05 % cream 1 applic topical DAILY PRN (Reason: skin irritation) Qty: 45 0RF hydroxyzine HCl 25 mg tablet 25 mg PO TID PRN (Reason: itching) Qty: 90 2RF zolpidem 10 mg tablet 10 mg PO QHS PRN (Reason: sleep) Qty: 30 2RF lurasidone [Latuda] 20 mg tablet 20 mg PO QPM Qty: 30 0RF Rx Instructions: must administer with food (at least 350 calories) * Take for 1 month then stop * quetiapine 50 mg tablet extended release 24 hr 50 mg PO QPM Qty: 30 2RF
[2025-03-28] MEDS: Atorvastatin 40 MG TAB PO ×2 (03:57→20:08)
--- NOTE | 2025-03-28 04:52 | W.PC.ACHO ---
Registration Status: REG ER Primary Language: Preferred Language: ED Information & Data Chief Complaint [id number] 03/28/25 00:03 Triage Note arrives via POV, syncopal 03/27/25 19:31 episode in car on arrival. had scoliosis surgery September 2024, ever since has been having recurrent episodes dizziness, lightheaded, blacks out, feels like her head just rolls back. Happens about once a week but today, has happened multiples times today. states whole body is numb feeling. denies seizure history, cardiac history. alert and oriented on arrival. Medical / Surgical History (Last Reviewed 03/28/25 @ 03:06 by Darrel Harrington) Decreased GFR Dental infection Hair loss Hemorrhoids Varicose vein of leg Venous insufficiency of both lower extremities Deformity of bone of foot Left shoulder pain Depression Bipolar disease, chronic (Last Reviewed 03/28/25 @ 03:06 by Darrel Harrington) History of tubal ligation Most Recent Vital Signs Temperature 37.0 C 03/27/25 19:31 Temperature Source Tympanic 03/27/25 19:31 Pulse 71 03/28/25 04:10 Pulse 71 03/28/25 04:10 Respiratory Rate 10 L 03/28/25 04:10 Respiratory Effort Normal, Non-Labored 03/27/25 20:49 Respiratory Depth Normal 03/27/25 20:49 Respiratory Pattern Normal 03/27/25 19:36 Blood Pressure 119/48 L 03/28/25 03:30 Blood Pressure Mean 72 03/28/25 03:30 Blood Pressure Position Supine 03/27/25 20:49 Pulse Oximetry 99 03/28/25 04:10 Oxygen Delivery Method Room Air 03/27/25 20:49 Oxygen Flow Rate 0 03/27/25 20:49 Pain Level 0 03/27/25 19:31 Comment 2L NC 03/28/25 04:10 Allergies amoxicillin Allergy (Unknown, Unverified 03/27/25 19:40) Diarrhea acetaminophen (From Vicodin) Allergy (Verified 03/27/25 19:40) Diarrhea hydrocodone (From Vicodin) Allergy (Verified 03/27/25 19:40) Diarrhea oxycodone (From Percocet) Allergy (Verified 03/27/25 19:40) Diarrhea Penicillins Allergy (Verified 03/27/25 19:40) Diarrhea diclofenac Adverse Reaction (Intermediate, Verified 03/27/25 19:40) insomnia Precautions Isolation Standard precaution 03/27/25 19:36 Active Medications Generic Name Dose Route Start Last Admin Trade Name Freq PRN Reason Stop Dose Admin Iohexol 100 ml 03/27/25 21:30 03/27/25 21:21 Omnipaque 350 Mg/Ml 100 Ml Btl IJ 04/26/25 23:59 100 ml DIRECTED LENO Administration Iohexol 50 ml 03/27/25 22:00 03/27/25 21:22 Omnipaque 350 Mg/Ml 50 Ml Btl IJ 04/26/25 23:59 50 ml DIRECTED LENO Administration Sodium Chloride 50 ml 03/27/25 21:30 03/27/25 21:24 Normal Saline - Diluent 50 Ml Vial IJ 50 ml .FOR DI USE LENO Administration Sodium Chloride 0 ml 03/27/25 21:23 03/27/25 21:23 Normal Saline Flush 10 Ml Syr IVP 10 ml PRN PRN Administration IV IV Catheter Type [Left Forearm Peripheral IV ] IV Catheter Gauge [Left 18 Forearm] Diagnostics 03/27/25 03/27/25 03/27/25 Range/Units 23:20 21:30 20:13 WBC 8.79 (4.4-10.8) 10^3/uL RBC 3.59 L (3.93-5.22) 10^6/uL Hgb 8.1 L (11.2-15.7) g/dL Hct 26.7 L (36.0-46.0) % MCV 74 L (80-95) fL MCH 22.6 L (27.0-33.0) pg MCHC 30.3 L (32.0-36.0) % RDW 19.3 H (11.7-14.6) % Plt Count 436 H (130-400) 10^3/uL MPV 9.8 (8.0-11.0) fL Immature Gran % 0.2 % Neutrophils % 57.9 % Lymphocytes % 31.2 % Monocytes % 7.4 % Eosinophils % 2.6 % Basophils % 0.7 % Nucleated RBC % 0.0 (0.0-0.3) % Absolute Neutrophils 5.09 (1.2-6.7) 10^3/uL Absolute Lymphocytes 2.74 (1.2-3.4) 10^3/uL Absolute Monocytes 0.65 (0.1-0.8) 10^3/uL Absolute Eosinophils 0.23 (0.0-0.7) 10^3/uL Absolute Basophils 0.06 (0.0-0.2) 10^3/uL RBC Morphology See Below Hypochromasia 2+ Anisocytosis 2+ Microcytosis 1+ D-Dimer (<500) ng/mlFEU Sodium 139 Potassium 4.0 Chloride 104 Carbon Dioxide 25.9 Anion Gap 9.1 BUN 20 H Creatinine 0.8 Est GFR (CKD-EPI 2020) 83.26 Glucose 93 Calcium 8.7 Magnesium 2.0 Iron (50-170) ug/dL TIBC (250-450) ug/dL Transferrin % Sat (15-50) % Ferritin (8-252) ng/mL Total Bilirubin 0.2 AST 10 L ALT 15 Alkaline Phosphatase 129 H Troponin I 8 9 7 Total Protein 7.4 Albumin 3.0 L TSH 4.05 H Urine Color (Yellow) Urine Clarity (Clear) Urine pH (5-8) Ur Specific Garfield (1.005-1.025) Urine Protein (Neg-Trace) mg/dL Urine Ketones (Negative) mg/dL Urine Blood (Negative) Urine Nitrite (Negative) Urine Bilirubin (Negative) Urine Urobilinogen (Up to 0.2) mg/dL Ur Leukocyte Esterase (Negative) Urine RBC (0-2) HPF Urine WBC (0-5) HPF Ur Epithelial Cells (Negative) HPF Urine Crystals (Negative) HPF Urine Bacteria (Negative) HPF Urine Casts (Negative) LPF Urine Mucus (Negative) Ur Culture Indicated? Urine Glucose (Negative) mg/dL COVID-19 Source SARS-CoV-2 (PCR) (Negative) Influenza Type A (PCR) (Negative) Influenza Type B (PCR) (Negative) RSV (PCR) (Negative) 03/27/25 03/27/25 03/27/25 Range/Units 20:10 19:57 19:50 WBC 9.64 (4.4-10.8) 10^3/uL RBC 3.81 L (3.93-5.22) 10^6/uL Hgb 8.7 L (11.2-15.7) g/dL Hct 28.5 L (36.0-46.0) % MCV 75 L (80-95) fL MCH 22.8 L (27.0-33.0) pg MCHC 30.5 L (32.0-36.0) % RDW 19.7 H (11.7-14.6) % Plt Count 445 H (130-400) 10^3/uL MPV 10.5 (8.0-11.0) fL Immature Gran % 0.2 % Neutrophils % 58.6 % Lymphocytes % 29.7 % Monocytes % 8.4 % Eosinophils % 2.6 % Basophils % 0.5 % Nucleated RBC % 0.0 (0.0-0.3) % Absolute Neutrophils 5.65 (1.2-6.7) 10^3/uL Absolute Lymphocytes 2.86 (1.2-3.4) 10^3/uL Absolute Monocytes 0.81 H (0.1-0.8) 10^3/uL Absolute Eosinophils 0.25 (0.0-0.7) 10^3/uL Absolute Basophils 0.05 (0.0-0.2) 10^3/uL RBC Morphology See Below Hypochromasia 1+ Anisocytosis 2+ Microcytosis 1+ D-Dimer 1184 H (<500) ng/mlFEU Sodium Cancelled Potassium Cancelled Chloride Cancelled Carbon Dioxide Cancelled Anion Gap Cancelled BUN Cancelled Creatinine Cancelled Est GFR (CKD-EPI 2020) Cancelled Glucose Cancelled Calcium Cancelled Magnesium Cancelled Iron 25 L (50-170) ug/dL TIBC 376 (250-450) ug/dL Transferrin % Sat 7 L (15-50) % Ferritin 6 L (8-252) ng/mL Total Bilirubin Cancelled AST Cancelled ALT Cancelled Alkaline Phosphatase Cancelled Troponin I Cancelled Total Protein Cancelled Albumin Cancelled TSH Cancelled Urine Color Yellow (Yellow) Urine Clarity Clear (Clear) Urine pH 6.0 (5-8) Ur Specific Garfield 1.010 (1.005-1.025) Urine Protein Negative (Neg-Trace) mg/dL Urine Ketones Negative (Negative) mg/dL Urine Blood Negative (Negative) Urine Nitrite Negative (Negative) Urine Bilirubin Negative (Negative) Urine Urobilinogen 0.2 (Up to 0.2) mg/dL Ur Leukocyte Esterase Trace H (Negative) Urine RBC Negative (0-2) HPF Urine WBC 0-2 (0-5) HPF Ur Epithelial Cells Few (Negative) HPF Urine Crystals Negative (Negative) HPF Urine Bacteria Few (Negative) HPF Urine Casts Negative (Negative) LPF Urine Mucus Negative (Negative) Ur Culture Indicated? No Urine Glucose Negative (Negative) mg/dL COVID-19 Source Nasopharynx SARS-CoV-2 (PCR) Negative (Negative) Influenza Type A (PCR) Negative (Negative) Influenza Type B (PCR) Negative (Negative) RSV (PCR) Negative (Negative) Rxact-ds-Vbtz Documentation Fingerstick Glucose Start: 03/27/25 19:42 Freq: Status: Active Protocol: Activity Type Activity Date Activity User E-sign Co-sign Detail Recorded Client Recorded Date Recorded By Document 03/27/25 19:41 BKG DAEMON(3) [id number] 03/27/25 19:42 BKG DAEMON(4) Intake and Output - 24 Hour Total 03/27/25 19:27 thru 03/27/25 21:16 Intake Total 1000 Balance 1000 Weight 96.615 kg Intake: IV 1000 Falls Risk Assessment History of Falls No History 03/27/25 19:36 Contributing Factors Impairments 03/27/25 19:36 Ambulatory Aids Uses ambulatory device + 03/27/25 19:36 Tubes/Lines With any additional score 03/27/25 19:36 Gait Evaluation W/any additional score 03/27/25 19:36 Cognition No cognitive impairment 03/27/25 19:36 Fall Total Score 73 03/27/25 19:36 Level of Risk High Risk 03/27/25 19:36 Problems (Last Reviewed 03/28/25 @ 03:06 by Darrel Harrington) Anemia (Chronic) CVA (cerebral vascular accident) (Chronic) Syncope (Chronic) Tobacco abuse (Chronic) Asthma (Chronic) Scoliosis (Acute) Sleep apnea, unspecified (Chronic) Hypertension (Chronic) GERD (gastroesophageal reflux disease) (Chronic) Bipolar disorder with psychotic features (Chronic) v v v v v v v v v Sending and/or Receiving Nurses: Please use comment section below to note any information pertinent to the patient hand-off not included above. Information / Comments: went to PT in am, went home and felt general malaise, sat down, blacked out for an unknown amount of time. Has had multiple syncopal episodes since. Daughter brought her in, had a syncopal episode in parking lot. Had a teleneuro- they want a monitor for 24hrs. EKG showed small runs of an abnormal rhythm. continuous EKG didn't catch it. Neuro also wants to start regular baby aspirin. A&O, has not been OOB. Orthostatics were negative. 18g LFA Report received from: Anna Gordillo RN @ [phone]
[2025-03-28 07:37] LABS: HCT 25.6 % (36.0-46.0); HGB 7.7 g/dL (11.2-15.7); MCH 22.8 pg (27.0-33.0); MCHC 30.1 % (32.0-36.0); MCV 76 fL (80-95); MPV 10.3 fL (8.0-11.0); Platelet Count 420 10^3/uL (130-400); RBC 3.38 10^6/uL (3.93-5.22); RDW 19.5 % (11.7-14.6); RDW-SD 53.3 fL; WBC 7.65 10^3/uL (4.4-10.8)
[2025-03-28 08:11] LABS: ALT 15 U/L (14-59); AST 10 U/L (15-37); Albumin 2.8 g/dL (3.4-5.0); Alkaline Phosphatase 124 U/L (46-116); Anion Gap 9.1 mmol/L (3-11); BUN 20 mg/dL (7-18); Bilirubin, Total 0.2 mg/dL (0.2-1.0); CO2 25.9 mmol/L (21.0-32.0); Calcium 8.7 mg/dL (8.5-10.1); Chloride 104 mmol/L (98-107); Glucose 95 mg/dL (74-106); Magnesium 2.2 mg/dL (1.8-2.4); Potassium 4.1 mmol/L (3.5-5.1); Sodium 139 mmol/L (136-145); Total Protein 6.9 g/dL (6.4-8.2)
[2025-03-28] MEDS: hydroCHLOROthiazide 12.5 MG TAB PO (08:12)
[2025-03-28] MEDS: Aspirin 81 MG CHEW PO (08:12)
[2025-03-28] MEDS: Lisinopril 20 MG TAB PO (08:12)
[2025-03-28] MEDS: Cyclobenzaprine 10 MG TAB PO ×2 (08:12→17:29)
[2025-03-28] MEDS: Omeprazole 20 MG CAPCR PO (08:12)
[2025-03-28] MEDS: Enoxaparin 40 MG/0.4 ML SYR SC ×2 (08:12→20:08)
[2025-03-28] MEDS: Normal Saline Flush 10 ML SYR IVP ×2 (08:13→20:07)
[2025-03-28 08:23] LABS: TSH (W/Ref FT4) 4.18 uIU/mL (0.36-3.74)
[2025-03-28] MEDS: Budesonide/Formoterol 160/4.5 6 GM 60 PUFF INH IH ×2 (08:30→20:46)
[2025-03-28 08:42] LABS: FREE T4 0.94 ng/dL (0.76-1.46)
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
--- NOTE | 2025-03-28 12:19 | PDOC.EEG ---
Neurology EEG EEG: [facility] Department of Neurology INPATIENT EEG REPORT Date of Recordin03/28/25 Interpreting Physician: Dr. Katty Holloway Reason for study: Tino Rahman is admitted with recurrent spells concerning for syncope vs seizure. Current Medications: Current Medications Al Hydrox/Mg Hydrox/Simethicone (Mylanta Suspension 30 Ml Cup) 30 ml PO Q2H PRN PRN Albuterol Sulfate (Albuterol 2.5 Mg/3 Ml Inh Soln Vial) 1.25 mg IH QID PRN PRN PRN Reason: shortness of breath or wheezing Aspirin (Aspirin 81 Mg Chew) 81 mg PO DAILY [facility] Last Admin: 03/28/25 08:12 Dose: 81 mg Atorvastatin Calcium (Atorvastatin 40 Mg Tab) 40 mg PO QPM [facility] Budesonide/Formoterol Fumarate (Budesonide/Formoterol 160/4.5 6 Gm 60 Puff Inh) 2 puff IH BID [facility] Last Admin: 03/28/25 08:30 Dose: 2 puff Cyclobenzaprine HCl (Cyclobenzaprine 10 Mg Tab) 10 mg PO DAILY PRN PRN PRN Reason: Muscle Spasm Docusate Sodium (Docusate Sodium 100 Mg Cap) 100 mg PO TID PRN PRN Enoxaparin Sodium (Enoxaparin 40 Mg/0.4 Ml Syr) 40 mg SC BID [facility] Hydrochlorothiazide (Hydrochlorothiazide 12.5 Mg Tab) 12.5 mg PO DAILY [facility] Last Admin: 03/28/25 08:12 Dose: 12.5 mg Hydroxyzine HCl (Hydroxyzine Hcl 25 Mg Tab) 25 mg PO TID PRN PRN PRN Reason: Itching IV Miscellaneous Supplies (Iv Access) 1 each IV DIRECTED [facility] Lisinopril (Lisinopril 20 Mg Tab) 20 mg PO DAILY [facility] Last Admin: 03/28/25 08:12 Dose: 20 mg Magnesium Hydroxide (Milk Of Magnesia 30 Ml Cup) 30 ml PO DAILY PRN PRN Omeprazole (Omeprazole 20 Mg Capcr) 20 mg PO DAILY@0730 [facility] Last Admin: 03/28/25 08:12 Dose: 20 mg Polyethylene Glycol (Polyethylene Glycol 3350 17 Gm Packet) 17 gm PO DAILY PRN PRN PRN Reason: Constipation Quetiapine Fumarate (Quetiapine 50 Mg Tabcr) 50 mg PO QPM [facility] Sodium Chloride (Normal Saline Flush 10 Ml Syr) 0 ml IVP PRN PRN Sodium Chloride (Normal Saline Flush 10 Ml Syr) 0 ml IVP BID [facility] Last Admin: 03/28/25 08:13 Dose: 10 ml Sodium Chloride (Normal Saline 10 Ml Vial) 0 ml IJ DIRECTED PRN METHODS: A 21 channel digitized electroencephalogram was performed in the [facility] Med/Surg Floor or ICU. The 10/20 international system of electrode placement was used and bipolar and referential electrode montages were recorded. In addition to EEG the patient was monitored for EKG and lateral/vertical eye movements. Activation procedures of photic stimulation and hyperventilation were performed if applicable. Video was used during activation procedures and during events where applicable. The duration of the recording was 30 minutes. DESCRIPTION OF EEG: The patient was noted to be awake, drowsy, and asleep during the recording. During maximal wakefulness an 7-8-Hz posterior background rhythm was present which was well-modulated, symmetrical, reactive to eye opening, and of moderate voltage. With eye opening the background activity changed to a low voltage mixture of alpha, beta, and occasional theta range frequencies. Faster frequencies were present in the bilateral anterior head regions. There was a normal anterior-posterior voltage gradient. During drowsiness, there was attenuation of the posterior dominant background rhythm and vertex waves. Stage II sleep was present with symmetrical sleep spindles, K-complexes, and vertex waves. Of note, the majority of the recording was during sleep. During brief wakefulness, there was moderate-amplitude, generalized, non-rhythmic theta slowing. Activating Procedures: Photic stimulation was performed which produced a symmetrical posterior driving response at various flash frequencies. Hyperventilation was not performed. EKG: EKG revealed normal sinus rhythm/sinus bradycardia. INTERPRETATION: This EEG is abnormal due to mild generalized non-rhythmic slowing and slowing of the PDR. PRIOR EEG: none CLINICAL CORRELATION: The above slowing is suggestive of a mild diffuse cerebral encephalopathy of broad differential including toxic-metabolic etiology. No focal regions of cerebral dysfunction or epileptiform activity was present. Clinical correlation is advised. Katty Holloway MD Date of service: 03/28/25
--- NOTE | 2025-03-28 13:40 | CHAPLAIN ---
Tino was resting in bed when I visited. Explained my role and offered support. She was pleasant and not interested in further conversation.
--- NOTE | 2025-03-28 14:18 | RESPIRATORY ---
03/28/2025 Pt states that she has a home CPAP that she does not wear because it is not comfortable; pt states she is going to talk to her doctor about finding something more comfortable for her.
--- NOTE | 2025-03-28 14:49 | PHA.REVIEW2 ---
Pharmacy Admission Review Admission Clinical Review Admission Pharmacy Review: amoxicillin Allergy (Unknown, Unverified 03/27/25 19:40) Diarrhea acetaminophen (From Vicodin) Allergy (Verified 03/27/25 19:40) Diarrhea hydrocodone (From Vicodin) Allergy (Verified 03/27/25 19:40) Diarrhea oxycodone (From Percocet) Allergy (Verified 03/27/25 19:40) Diarrhea Penicillins Allergy (Verified 03/27/25 19:40) Diarrhea diclofenac Adverse Reaction (Intermediate, Verified 03/27/25 19:40) insomnia Resuscitation Status Full Code Height 5 ft 4 in Weight 105.687 kg Pharmacy Admission Review Renal Dosing Renal Dosing: BUN 20 mg/dL (7-18) H 03/28/25 05:35 Creatinine 1.0 mg/dL (0.55-1.02) 03/28/25 05:35 Medications needing adjustments: Reviewed (CrCl 69.15 mL/min) List of meds needing interventions: Current medications are okay Anticoagulation Anticoagulation: Hgb 7.7 g/dL (11.2-15.7) L 03/28/25 07:25 Hct 25.6 % (36.0-46.0) L 03/28/25 07:25 Plt Count 420 10^3/uL (130-400) H 03/28/25 07:25 INR 1.0 (0.9-1.1) 03/28/25 07:25 Creatinine 1.0 mg/dL (0.55-1.02) 03/28/25 05:35 DVT Prophylaxis: Intervened (changed from daily to BID due to BMI of 40) Medications: Enoxaparin (40mg BID) Relevant Labs Relevant Labs: Sodium 139 mmol/L (136-145) 03/28/25 05:35 Potassium 4.1 mmol/L (3.5-5.1) 03/28/25 05:35 Chloride 104 mmol/L (98-107) 03/28/25 05:35 Magnesium 2.2 mg/dL (1.8-2.4) 03/28/25 05:35 Electrolytes, C-Reactive P, ESR: Reviewed Cardiac Review Cardiac Review: Troponin I 8 ng/L (<or=51) 03/27/25 23:20 Blood Pressure [Standing] 166/89 0541 Blood Pressure [Sitting] 170/101 0541 Blood Pressure 119/75 1152 Blood Pressure 129/78 0714 BP, HR, EF%: Reviewed (BP and HR WNL) List meds needing interventions: Has orders for HCTZ 12.5mg daily and lisinopril 20mg daily QTc Review QTc: Reviewed (427 from 03/27/25) IV to PO Switch IV Medications: Reviewed Home Meds Home Med List reviewed: Reviewed Relevent Home Meds Not ordered & why?: betamethasone cream (PRN) and ibuprofen (PRN) Current Meds Current Medication Order Review: Intervened Comments: Added 2nd PRN to albuterol, cyclobenzaprine and hydroxyzine orders per pharmacy protocol
[2025-03-28] MEDS: ACETAMINOPHEN 1,000 MG/100 ML BAG 400 MG IVPB (18:00)
[2025-03-28] MEDS: Albuterol 2.5 MG/3 ML INH SOLN VIAL 1.25 MG IH (18:37)
[2025-03-28] MEDS: hydrOXYzine HCL 25 MG TAB PO (22:24)
[2025-03-29 03:43] VITALS: BP 107/62; PULSE 67; RESP 18; TEMP 36.3; O2SAT 97
[2025-03-29 04:01] LABS: *AMPHETAMINES SCREEN URINE Negative (Negative); *BARBITURATES SCREEN URINE Negative (Negative); *BENZODIAZEPINES SCREEN URINE Negative (Negative); Cannabinoids THC Negative (Negative); Cocaine Screen,Urine Negative (Negative); METHADONE URINE SCREEN Negative (Negative); OPIATES URINE SCREEN Negative (Negative); Tricyclic Antidepressants Negative (Negative)
[2025-03-29] MEDS: Cyclobenzaprine 10 MG TAB PO ×2 (06:00→21:02)
[2025-03-29 06:24] LABS: HCT 26.3 % (36.0-46.0); HGB 7.8 g/dL (11.2-15.7); MCH 22.7 pg (27.0-33.0); MCHC 29.7 % (32.0-36.0); MCV 77 fL (80-95); MPV 9.9 fL (8.0-11.0); Platelet Count 376 10^3/uL (130-400); RBC 3.44 10^6/uL (3.93-5.22); RDW 19.8 % (11.7-14.6); RDW-SD 54.8 fL; WBC 6.74 10^3/uL (4.4-10.8)
[2025-03-29 07:58] VITALS: BP 121/65; BP 127/82; BP 143/76; PULSE 74; PULSE 75; PULSE 84; RESP 16; TEMP 36.6; O2SAT 98
[2025-03-29 08:11] LABS: ALT 15 U/L (14-59); AST 14 U/L (15-37); Albumin 2.7 g/dL (3.4-5.0); Alkaline Phosphatase 126 U/L (46-116); Anion Gap 8.5 mmol/L (3-11); BUN 23 mg/dL (7-18); Bilirubin, Total 0.2 mg/dL (0.2-1.0); CO2 25.5 mmol/L (21.0-32.0); CREATININE 1.1 mg/dL (0.55-1.02); Chloride 105 mmol/L (98-107); Estimated GFR 56.81 (mL/min/1.73m2); Glucose 113 mg/dL (74-106); Magnesium 2.3 mg/dL (1.8-2.4); Potassium 4.3 mmol/L (3.5-5.1); Sodium 139 mmol/L (136-145)
[2025-03-29] MEDS: Normal Saline Flush 10 ML SYR IVP ×2 (08:17→20:01)
[2025-03-29] MEDS: Aspirin 81 MG CHEW PO (08:18)
[2025-03-29] MEDS: Omeprazole 20 MG CAPCR PO (08:18)
[2025-03-29] MEDS: Lisinopril 20 MG TAB PO (08:18)
[2025-03-29] MEDS: hydroCHLOROthiazide 12.5 MG TAB PO (08:18)
[2025-03-29] MEDS: Enoxaparin 40 MG/0.4 ML SYR SC (08:18)
--- NOTE | 2025-03-29 08:30 | DI.US_ITS ---
Exam(s) US EXTREMITY VENOUS BI EXAM: US EXTREMITY VENOUS BI CLINICAL HISTORY: calf pain. TECHNIQUE: Bilateral lower extremity venous ultrasound performed using grayscale, color-flow, and spectral Doppler analysis. COMPARISON: No exams were available for comparison FINDINGS: The bilateral common femoral, femoral and popliteal veins demonstrate normal compressibility, augmentation, and color Doppler. The posterior tibial and parent veins are patent. There is a Coon's cyst on the right measuring 3 0.0 x 1.4 x 0.9 cm. IMPRESSION: Right: Negative for DVT. Small Coon cyst. Left: Negative for DVT DATA REPOSITORY:
--- NOTE | 2025-03-29 10:01 | PGE_ITS ---
Date of Service Date of service: 03/29/25 Time of Service: 10:02 Assessment and Plan Assessment and plan (1) Syncope: Start date: 03/28/25 Status: Chronic Assessment and plan: Ongoing telemetry ecdhocardiogram -preliminary showing LVOT obstruction Card consult (2) CVA (cerebral vascular accident): Status: Chronic Assessment and plan: On CT:Old lacunar infarct in the right thalamus. ongoing ASA and statin Neurology consultation for workup of possible seizures with her syncopal episodes to be considered and to advise on long-term risk management for recurrence. (3) Anemia: Status: Chronic Assessment and plan: H&H stable Fe 25 TIBC 375 transferrin sat 7 Consider IV iron in the setting of CHF VS oral replacement Iron deficiency with probable chronic blood loss-history of GERD and on ibuprofen. Most likely not the etiology for syncopal episodes. (4) GERD (gastroesophageal reflux disease): Status: Chronic Assessment and plan: ongoing PPI. (5) Bipolar disorder with psychotic features: Status: Chronic Assessment and plan: Continue outpatient medical therapy with an updated she has done zolpidem in the past because of insomnia but has not had this prescribed recently. VPMS was reviewed and urine drug screen will be performed because of risk of self treatment and presentation of episodes of syncope status post recent surgery for scoliosis. When interviewing the patient, she appears to be low risk for misuse. (6) Tobacco abuse: Status: Chronic Assessment and plan: ongoing nicotine dependance but will not give nicotine supplement because of question of problems with newly diagnosed CVA and syncopal workup. (7) Asthma: Status: Chronic Assessment and plan: ongoing home meds with maintenance and rescue inhalers as per outpatient. (8) Hypertension: Status: Chronic Assessment and plan: ongoing outpatient medical therapy. (9) Sleep apnea, unspecified: Status: Chronic Assessment and plan: Home CPAP but not compliant . This would be appropriate especially with her advancing cardiovascular disease with subacute right thalamic stroke and hypertension and now questionable LVOT obstruction. (10) Scoliosis: Status: Chronic Assessment and plan: Stable , healed surgical scar, status post corrective surgery with rodding. The patient has had a long period of rehabilitation in centers. Patient is still recovering but is now living locally with her daughter. DVT prophylaxis: on lovenox Discussed with Dr. Porter Subjective Subjective Patient reports: no new complaints, tolerating liquids well, tolerating a regular diet, voiding w/o difficulty, bowel movement and other (dizziness when sitting / standing ); denies still having pain, diarrhea, blood in stool, nausea, vomiting or shortness of breath Exam Narrative Exam Narrative: No acute distress, A& O X4, non focal neurological deficit, S1, S2, right sternal border split sound, clear lungs, non-acute ABD, no CVA tendertness Objective Last Vital Signs Temp 36.6 C 03/29/25 07:58 Pulse 74 03/29/25 07:58 Resp 16 03/29/25 07:58 BP 121/65 03/29/25 07:58 Pulse Ox 98 03/29/25 07:58 Laboratory Results - last 24 hr 03/29/25 03/29/25 03:15 06:04 WBC 6.74 RBC 3.44 L Hgb 7.8 L Hct 26.3 L MCV 77 L MCH 22.7 L MCHC 29.7 L RDW 19.8 H Plt Count 376 MPV 9.9 Sodium 139 Potassium 4.3 Chloride 105 Carbon Dioxide 25.5 Anion Gap 8.5 BUN 23 H Creatinine 1.1 H Est GFR (CKD-EPI 2020) 56.81 Glucose 113 H Calcium 9.0 Magnesium 2.3 Total Bilirubin 0.2 AST 14 L ALT 15 Alkaline Phosphatase 126 H Total Protein 7.0 Albumin 2.7 L Urine Opiates Screen Negative Urine Methadone Screen Negative Ur Barbiturates Screen Negative Ur Tricyclics Screen Negative Ur Amphetamines Screen Negative U Benzodiazepines Scrn Negative Urine Cocaine Screen Negative Ur THC Screen Negative Time Spent with Patient Time Spent with Patient: >50 minutes Time was spent: preparing to see the patient(eg.review tests), obtaining and/or reviewing separately otained hiistory, ordering medications,tests, procedures, referring, communicating with other health director of patient care, indepentently interpreting results, counseling the patient and care coordination
[2025-03-29] MEDS: Budesonide/Formoterol 160/4.5 6 GM 60 PUFF INH IH ×2 (11:25→20:20)
--- NOTE | 2025-03-29 14:15 | IN_ITS ---
PT Notes Visit Reasons: Syncope, Old right CVA, HTN Physical Therapy Inpatient Initial Evaluation Date: 03/29/2025 Referring Doctor: Claude Porter MD PT Orders: PT CONSULT: Safety Consult for D/C. Fall safety assessment Precautions: Fall. Standard. Activity as tolerated. Patient Profile/Admitting Diagnosis: Deena is a 65-year-old female with past medical history significant for old back and right thalamic infarction a 06/16/2024 and status post corrective surgery for scoliosis on 09/14/2024 who was admitted to the ED on 03/27/2025 with complaints of syncopal episode x 2 prompting the patient's daughter to bring patient to the hospital with a third episode happening en route to the ED. Patient is admitted for a more comprehensive workup to rule out new CVA versus seizure activities while managing symptoms of anemia, GERD, asthma, hypertension, and bipolar disorder with psychotic episodes. PMHx: All Active Problems (Updated 03/28/25 @ 05:16 by Darrel Harrington) Anemia (Chronic) Recurrent episodes of unresponsiveness (Acute) CVA (cerebral vascular accident) (Chronic) Syncope (Chronic) Right shoulder pain (Acute) Palpitations (Acute) Tobacco abuse (Chronic) 40+ years of 0.5-2 ppd Asthma (Chronic) Insomnia (Acute) Anxiety attack (Acute) Prediabetes (Acute) Atypical chest pain (Acute) Plantar fasciitis (Acute) Scoliosis (Chronic) High risk medication use (Acute) Sleep apnea, unspecified (Chronic) At risk for falls (Acute) Hypertension (Chronic) Obesity (Chronic) Plaque psoriasis (Acute) Bunion, right foot (Acute) GERD (gastroesophageal reflux disease) (Chronic) Bipolar disorder with psychotic features (Chronic) Chronic kidney disease (CKD) stage G3b/A1, moderately decreased glomerular filtration rate (GFR) between 30-44 mL/min/1.73 square meter and albuminuria creatinine ratio less than 30 mg/g (Acute) Heart murmur (Acute) Grief (Chronic) Vaginal bleeding (Acute) Medical History Decreased GFR Dental infection Hair loss Hemorrhoids Varicose vein of leg Venous insufficiency of both lower extremities Deformity of bone of foot Left shoulder pain Depression Bipolar disease, chronic Surgical History History of tubal ligation Social History/Home Situation: Lives with daughter in a private home. Modified independent with use of 4WW indoors and for a short distance outdoors. Equipment Owned/DME: 4WW Subjective: Merrill weak. Legs were heavy just covering a short distance inside her room. Okay with continuing with OP services to improve her strength and balance. Denied headache, chest pain, and lightheadedness throughout session. Objective: General Observation: Seated on bedside recliner. High BMI. IV through R UE. Mental Status: Alert and oriented as to person, place, time, and purpose. Able to pay attention, focus, and respond appropriately. Pain: Pain in sacral area with prolonged sitting to 5/10 Vital Signs: Closely monitored by nursing staff ROM: Right Upper Extremity: Shoulder Flexion WFL. Shoulder abduction WFL. Elbow flexion WFL. Wrist flexion WFL. Functional opening and closing of hand WFL. Left Upper Extremity: Shoulder Flexion WFL. Shoulder abduction WFL. Elbow flexion WFL. Wrist flexion WFL. Functional opening and closing of hand WFL. Right Lower Extremity: Hip flexion allowed up to 110 degrees. Hip abduction WFL. Knee flexion WFL. Ankle dorsiflexion WFL. Ankle plantarflexion WFL. Left Lower Extremity: Hip flexion allowed up to 110 degrees. Hip abduction WFL. Knee flexion WFL. Ankle dorsiflexion WFL. Ankle plantarflexion WFL. Strength: Right Upper Extremity: Shoulder flexors 4-/5. Shoulder abductors 4-/5. Elbow flexors 4-/5. Elbow extensors 4-/5. Platform Inspector strong. Left Upper Extremity: Shoulder flexors 4-/5. Shoulder abductors 4-/5. Elbow flexors 4-/5. Elbow extensors 4-/5. Platform Inspector strong. Right Lower Extremity: Hip flexors 3+/5. Hip abductors 4-/5. Knee flexors 4/5. Knee extensors 4-/5. Ankle dorsiflexors 4-/5. Ankle plantarflexors 4-/5. Left Lower Extremity: Hip flexors 3+/5. Hip abductors 4-/5. Knee flexors 4/5. Knee extensors 4-/5. Ankle dorsiflexors 4-/5. Ankle plantarflexors 4-/5 Bed Mobility/Transfers: Minimal cueing provided for use of B hands as needed for support, movement sequence, AD management, and posture to reduce fall risk and minimize pain report Sit to stand contact guard assist using FWW Stand to sit stand by assist using FWW Bed to toilet seat stand by assist using FWW Toilet to bedside recliner stand by assist using FWW Gait: Facilitated safe and correct performance of short in-room ambulation from chair to toilet and back using bariatric front-wheeled walker with complaint of B lower extremities feeling heavy. No LOB nor SOB observed. Step to gait pattern. Balance: Static Sitting: Normal Dynamic Sitting: Normal Static Standing: Fair Dynamic Standing: Fair Special Tests: Mobility Limitations Standardized Measure [facility] AM-PAC 6 clicks Basic Mobility Inpatient Short Form: Raw Score: 14 CMS Score: 61% deficit Pronator drift: Negative Rapid alternating movement: Impaired [place]omberg: Minimal postural sway that did not cause any LOB Informed Consent/Education: Patient was instructed in purpose of PT consult and plan of care. Agreeable to proceed with established PT POC to achieve personal goals. Assessment: Patient continues to feel weakness in B LE that limits her ability and her confidence with functional mobility performance. She requires the use of a front-wheeled walker for all in-room mobility tasks. Patient is S/P surgery for her scoliosis back in September 2024 and has had rehab placement from acute care hospital for at least a month prior to going home. Patient also has a history of lacunar infarct in the R thalamic area back in September with no residual deficits as of this admission. Two episodes of syncopal episodes prompted daughter to bring patient to hospital for immediate medical intervention. Patient presents with clinical signs and symptoms consistent with current/admitting diagnoses that have resulted to mobility limitations, gait instability, generalized weakness, and overall ADL decline as demonstrated by the following impairment level findings: 1. Decreased strength to B LE major muscle groups 2. Impaired sitting/standing balance 3. Impaired activity tolerance 4. Limitation of joint range of motion in B hips 5. High BMI 6. Post op status for scoliosis surgery (09/14/2024) Impairments are contributing to the following functional limitations: 1. Decline in bed mobility skills 2. Decline in transfer skills 3. Difficulty with ambulation without assistive device and physical assistance 4. Increased completion time for mobility ADL performance 5. Increased risk for falls 6. Difficulty with managing steps alone safely Patient is assessed as a 89407 oderate complexity based on the following: History: 64-year-old female with past medical history as indicated above Examination: Demonstrable impairment in strength, balance, and mobility level with underlying impairments and functional limitations as exhibited above as well as deficit score of 61% utilizing the [facility] Mobility Inpatient Short Form Presentation: Evolving Decision Makin moderate complexity Goals: Goals X1 week 1. Supine-Sit independent 2. Sit-Supine independent 3. Sit-Stand independent 4. Stand-Sit independent with 4WW 5. Bed-Chair independent with 4WW 6. Chair-Bed independent with 4WW 7. Independent gait on level surface with use of 4WW for at least 150 feet without report of pain nor dyspnea 8. Independent stair negotiation while holding ontoB rails for at least 3 steps without report of pain nor dyspnea 9. Independent with home exercise program 10. Good static and dynamic standing balance/tolerance Plan of Care/Treatment Plan: 1-2x/day, 7 days/week x 1 week. Plan of care has been reviewed with the H[employer]UC[employer] TEACHER providing the service under Physical Therapy direction. Initiate Physical Therapy intervention for pain management as needed, strengthening, bed mobility, transfers, gait, stairs, balance training, and use of assistive device. DISCHARGE RECOMMENDATIONS: [X] Resume OP PT for continued strengthening, balance training, and functional mobility training TREATMENT CODE/TIME: 53359 x 20 minutes for 1 unit, 04363 x 15 minutes for 1 unit (14:15-14:50). Thank you for the opportunity to participate in the care of this patient. Saundra Agustin PT, DPT, CLT [facility] [place], [place]
--- NOTE | 2025-03-29 15:21 | PDOC.CMPRO ---
Date of service: 03/29/25 Time of Service: 15:21 Care Management Progress Note Progress Note Text Progress Note Text: Tino was reclined in her chair, when CM arrived. She states, she is hopeful to go home today. Tino attends outpatient PT at [facility] and will continue, once discharge. CM will continue to follow. Discharge Potential Discharge Needs: PCP F/U Appt Anticipated Barriers to Discharge: Medical Status Patient/Family Education Needs: Review discharge instructions, discuss Ask Me Three Transportation: Private vehicle Plan: Anticipate, Tino will discharge home, with a resumption of outpatient PT, once medically ready. She will follow up with her community providers, and plan of care. Tino will transport home via private vehicle by her daughter. Social Determinants of Health Screening Social Determinants of health last assessed in clinic: 03/29/25 Will the Patient Participate in the Screening?: Yes Do you worry about having a steady place to live?: no Problems where you live: no known problems In the past 12 months, have you had to go without electric, gas, oil or water in your home?: no 1. Within the past 12 months, we worried whether our food would run out before we got money to buy more.: Never true 2. Within the past 12 months, the food we bought just didn't last and we didn't have money to get more.: Never true Has lack of transportation kept you from medical appointments or from doing things needed for daily living?: no Has anyone in your life made you feel unsafe or unsupported?: no How hard is it for you to pay for the very basics like food, housing, medical care, and heating? Would you say it is:: Not hard at all Do you want help finding or keeping work or a job?: I do not need or want help If for any reason you need help with day-to-day activities such as bathing, preparing meals, shopping, managing finances, etc., do you get the help you need?: I don?t need any help How often do you feel lonely or isolated from those around you?: Never Do you speak a language other than Filipino at home?: Yes Does the patient want assistance with any of the above?: No Health Related Social Needs Health related social needs: education (Z55.6) Health related social needs details: speaks Chinese as a 1st language. Pt states she is comfortable with care in Filipino
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
[2025-03-29 16:01] VITALS: BP 104/55; PULSE 68; RESP 16; TEMP 36.5; O2SAT 97
[2025-03-29] MEDS: Atorvastatin 40 MG TAB PO (20:02)
[2025-03-29 20:09] VITALS: BP 106/69; PULSE 82; RESP 20; TEMP 37; O2SAT 98
[2025-03-29] MEDS: hydrOXYzine HCL 25 MG TAB PO (21:02)
[2025-03-29 22:57] VITALS: BP 115/59; PULSE 74; RESP 22; TEMP 36.9; O2SAT 96
[2025-03-30 03:29] VITALS: BP 100/40; PULSE 78; RESP 16; TEMP 36.7
[2025-03-30] MEDS: Acetaminophen 325 MG TAB 650 MG PO (04:37)
[2025-03-30 07:48] VITALS: BP 98/66; PULSE 77; RESP 15; TEMP 36.7; O2SAT 97
[2025-03-30 08:03] LABS: ALT 17 U/L (14-59); AST 10 U/L (15-37); Albumin 2.8 g/dL (3.4-5.0); Alkaline Phosphatase 124 U/L (46-116); Anion Gap 5.5 mmol/L (3-11); BUN 24 mg/dL (7-18); Bilirubin, Total 0.3 mg/dL (0.2-1.0); CO2 30.5 mmol/L (21.0-32.0); Calcium 9.1 mg/dL (8.5-10.1); Chloride 103 mmol/L (98-107); Glucose 93 mg/dL (74-106); Potassium 4.4 mmol/L (3.5-5.1); Sodium 139 mmol/L (136-145); Total Protein 7.1 g/dL (6.4-8.2)
[2025-03-30] MEDS: Budesonide/Formoterol 160/4.5 6 GM 60 PUFF INH IH (08:24)
[2025-03-30 08:28] VITALS: BP 145/70
[2025-03-30] MEDS: Aspirin 81 MG CHEW PO (08:30)
[2025-03-30] MEDS: hydroCHLOROthiazide 12.5 MG TAB PO (08:30)
[2025-03-30] MEDS: Lisinopril 20 MG TAB PO (08:30)
[2025-03-30] MEDS: Enoxaparin 40 MG/0.4 ML SYR SC (08:30)
[2025-03-30] MEDS: Normal Saline Flush 10 ML SYR IVP (08:30)
[2025-03-30] MEDS: Omeprazole 20 MG CAPCR PO (08:30)
[2025-03-30 11:30] VITALS: BP 113/62; PULSE 80; RESP 15; TEMP 36.7; O2SAT 99
--- NOTE | 2025-03-30 11:38 | PT.INTREAT ---
PT Notes Visit Reasons: Syncope, Old right CVA, HTN Physical Therapy Inpatient Initial Evaluation Date: 03/30/2025 Precautions: Fall. Standard. Activity as tolerated. Subjective: [place] much better. Agreeable to walking in the hallway with walker. She has a 4WW and no stesp to get in at home. Okay with continuing with OP services to improve her strength and balance. Denied headache, chest pain, and lightheadedness throughout session. Objective: General Observation: Seated on bedside recliner. High BMI. IV through R UE. Mental Status: Alert and oriented as to person, place, time, and purpose. Able to pay attention, focus, and respond appropriately. Pain: Non reported Vital Signs: Closely monitored by nursing staff Bed Mobility/Transfers: Minimal cueing provided for use of B hands as needed for support, movement sequence, AD management, and posture to reduce fall risk and minimize pain report Sit to stand supervision using FWW Stand to sit supervision using FWW Bed to toilet seat stand by assist using FWW Toilet to bedside recliner stand by assist using FWW Gait: Facilitated safe and correct performance of level surface ambulation of about 150 feet + 100 feet using bariatric front-wheeled walker with no complaint of B lower extremities feeling heavy. No LOB nor SOB observed. Step through gait pattern. Trunk deviated to R but was able to correct when cued. Balance: Static Sitting: Normal Dynamic Sitting: Normal Static Standing: Fair Dynamic Standing: Fair Assessment: Patient continues to feel weakness in B LE that limits her ability and her confidence with functional mobility performance. She requires the use of a front-wheeled walker for all in-room mobility tasks. Patient is S/P surgery for her scoliosis back in September 2024 and has had rehab placement from [facility] for at least a month prior to going home. Patient also has a history of lacunar infarct in the R thalamic area back in September with no residual deficits as of this admission. Two episodes of syncopal episodes prompted daughter to bring patient to hospital for immediate medical intervention. Plan of Care/Treatment Plan: Cotninue with OP PT for strengthening, balance, and functional mobility training to regain PLOF. DISCHARGE RECOMMENDATIONS: [X] Resume OP PT for continued strengthening, balance training, and functional mobility training TREATMENT CODE/TIME: 90421 x 26 minutes for 2 units (11:38-12:04).
--- NOTE | 2025-03-30 13:54 | CMDISCH_ITS ---
Date of service: 03/30/25 Time of Service: 14:43 LACE Index Scoring Tool Questions: Length of Stay (in days): 2 Was the patient admitted via the E.D.?: Yes Comorbidities: Liver or Renal Disease E.D. Visits: 1 Answers: Total Score: 11 Risk of Readmission: High Risk Care Management Discharge Plan Reason for Hospitalization: Syncope, Old right CVA, HTN Discharge Plan: Tino will discharge home, with a resumption of outpatient PT, today. She will follow up with her community providers, and plan of care. Tino will transport home via private vehicle by her daughter. Patient/Family Education Needs: Review discharge instructions, activity, limitations, and plan of care. Discuss Ask Me Three. Services Needed at Discharge: Outpatient Therapy (PT) SDOH Health Related Social Needs: Health related social needs education Health related social needs details speaks [place]ive[place] as a 1st language. Pt states she is comfortable with care in [place] Health related social needs details: speaks Divehi as a 1st language. Pt states she is comfortable with care in M[place]ese
== END 2025-03-30 16:00 | disposition home or self-care (01) | DRG 312 ==
LOC: ER 03-28 04:35 → MS 03-28 05:18
PROVIDERS: Admitting Provider Family Medicine; Emergency Provider Physician Assistant; PCP Nurse Practitioner Family; Responsible Provider Nurse Practitioner Acute Care; Visit Provider Family Medicine
DX: R55 Syncope and collapse (principal); I48.92 Unspecified atrial flutter; Z68.41 Body mass index [BMI] 40.0-44.9, adult; D50.0 Iron deficiency anemia secondary to blood loss (chronic); K21.9 Gastro-esophageal reflux disease without esophagitis; F17.210 Nicotine dependence, cigarettes, uncomplicated; J45.40 Moderate persistent asthma, uncomplicated; M41.84 Other forms of scoliosis, thoracic region; F28 Other psychotic disorder not due to a substance or known physiological condition; G47.00 Insomnia, unspecified; F41.9 Anxiety disorder, unspecified; E66.9 Obesity, unspecified; L40.0 Psoriasis vulgaris; N18.32 Chronic kidney disease, stage 3b; I12.9 Hypertensive chronic kidney disease with stage 1 through stage 4 chronic kidney disease, or unspecified chronic kidney disease; I87.2 Venous insufficiency (chronic) (peripheral); F17.290 Nicotine dependence, other tobacco product, uncomplicated; Z86.73 Personal history of transient ischemic attack (TIA), and cerebral infarction without residual deficits; Z79.899 Other long term (current) drug therapy; G47.33 Obstructive sleep apnea (adult) (pediatric); R56.9 Unspecified convulsions
CPT/HCPCS: 00123; 36415; 36416; 70496; 70498; 71275; 80053; 80307; 82962; 85027; 87637; 93005; 94640; 95819; 96360; 97162; 97530; 99285; J1650; 81003; 81015; 82728; 83036; 83540; 83550; 83735; 84439; 84443; 84484; 85025; 85379; 85610; 93010; 93306; 93970; 99223; 99233; 99239; J0131; J3490; J7613; Q9967

== ENCOUNTER 2025-03-30 16:03 | Outpatient (RCR) | payer MEDICAID, SELFPAY | END 2025-04-03 23:59 | disposition home or self-care (01) | LOC: RT 16:03 | PROVIDERS: PCP Nurse Practitioner Family; Visit Provider Nurse Practitioner Acute Care | DX: I63.9 Cerebral infarction, unspecified (principal) | CPT/HCPCS: 93270 ==

== ENCOUNTER 2025-04-10 09:31 | Outpatient (CLI) | payer MEDICAID, SELFPAY ==
--- NOTE | 2025-04-10 09:30 | RT.EKG_ITS ---
APPROVED REPORT Exam: Resting ECG Reason for Exam: Dizzy Patient Location: O HR:76 bpm ECG Measurements Heart Rate 76 AXIS VT 151 P 43 QRSd 92 QRS 9 QT 362 T 53 QTc 408 Conclusion Sinus rhythm...normal P axis, V-rate 50- 99 Baseline wander in lead(s) V6 Normal Electrocardiogram
== END 2025-04-10 09:32 | disposition home or self-care (01) ==
LOC: DI.CM 09:31
PROVIDERS: PCP Nurse Practitioner Family; Visit Provider Nurse Practitioner Family
DX: R07.89 Other chest pain (principal)
CPT/HCPCS: 93010

== ENCOUNTER 2025-04-10 10:31 | Emergency (ER) | payer MEDICAID, SELFPAY ==
--- NOTE | 2025-04-10 11:00 | RT.EKG_ITS ---
APPROVED REPORT Exam: Resting ECG Reason for Exam: dizziness Patient Location: E HR:90 bpm ECG Measurements Heart Rate 90 AXIS NV 157 P 71 QRSd 81 QRS 46 QT 344 T 85 QTc 421 Conclusion Sinus rhythm 90 no stemi
[2025-04-10 11:03] VITALS: BP 137/80; PULSE 84; RESP 16; TEMP 36.9; O2SAT 96
[2025-04-10] MEDS: Meclizine 25 MG TAB 50 MG PO (12:08)
[2025-04-10 12:10] VITALS: RESP 18
[2025-04-10 13:42] VITALS: BP 129/63; PULSE 70; RESP 18; O2SAT 100
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
== END 2025-04-10 13:43 | disposition home or self-care (01) ==
PROVIDERS: Emergency Provider Emergency Medicine; PCP Nurse Practitioner Family
DX: R42 Dizziness and giddiness (principal); I12.9 Hypertensive chronic kidney disease with stage 1 through stage 4 chronic kidney disease, or unspecified chronic kidney disease; N18.32 Chronic kidney disease, stage 3b; Z86.73 Personal history of transient ischemic attack (TIA), and cerebral infarction without residual deficits; Z79.82 Long term (current) use of aspirin; Z87.891 Personal history of nicotine dependence
CPT/HCPCS: 93005; 99284; 93010; 99283

== ENCOUNTER 2025-04-26 17:51 | Outpatient (REF) | payer MEDICAID, SELFPAY ==
[2025-04-26 21:27] LABS: HCT 32.4 % (36.0-46.0); HGB 10.1 g/dL (11.2-15.7); MCH 24.0 pg (27.0-33.0); MCHC 31.2 % (32.0-36.0); MCV 77 fL (80-95); MPV 10.6 fL (8.0-11.0); Platelet Count 475 10^3/uL (130-400); RBC 4.20 10^6/uL (3.93-5.22); RDW 20.0 % (11.7-14.6); RDW-SD 55.8 fL; WBC 9.41 10^3/uL (4.4-10.8)
[2025-04-26 21:43] LABS: Hemoglobin A1C 5.6 % (<5.7)
[2025-04-26 21:46] LABS: Iron 16 ug/dL (50-170)
[2025-04-26 21:59] LABS: ALT 21 U/L (14-59); AST 11 U/L (15-37); Albumin 3.7 g/dL (3.4-5.0); Alkaline Phosphatase 140 U/L (46-116); Anion Gap 9.1 mmol/L (3-11); BUN 15 mg/dL (7-18); Bilirubin, Total 0.3 mg/dL (0.2-1.0); CO2 26.9 mmol/L (21.0-32.0); Calcium 9.2 mg/dL (8.5-10.1); Calculated LDL 109 mg/dL (<100); Chloride 105 mmol/L (98-107); Cholesterol 182 mg/dL (<200); Estimated GFR 63.70 (mL/min/1.73m2); Ferritin 7 ng/mL (8-252); Glucose 94 mg/dL (74-106); HDL Cholesterol 58 mg/dL (>or=50); Potassium 4.0 mmol/L (3.5-5.1); Sodium 141 mmol/L (136-145); Total Protein 7.6 g/dL (6.4-8.2); Triglyceride 75 mg/dL (<150)
== END 2025-04-26 17:52 | disposition home or self-care (01) ==
LOC: LBN 17:51
PROVIDERS: PCP Nurse Practitioner Family; Visit Provider Nurse Practitioner Family
DX: R73.03 Prediabetes (principal); D50.0 Iron deficiency anemia secondary to blood loss (chronic)
CPT/HCPCS: 80053; 80061; 85027; 82728; 83036; 83540

== ENCOUNTER 2025-07-05 17:40 | Outpatient (REF) | payer MEDICAID, SELFPAY ==
--- NOTE | 2025-07-05 14:30 | PAPFT_PTH ---
PATIENT: Tino Rahman LOC: [facility] #:[id number] AGE/SX: 64/F ROOM: RE07/05/[address]: Isaiah Davila DNP : 1960 BED: DIS: 07/05/2025 SPEC #: [id number] RECD: 07/05/25 17:52 STATUS: TAMRA REQ #: [id number] CHANI: 07/05/25 14:[address]: Isaiah Paula DEPT: [facility] Cytology RECD BY: Judy Zhu Tissues: 1 - CX/ENDOCX FOR PAP SMEARS Procedures: PAP THIN PREP/UVM Screening HPV DNA PROBE Comments: [id number] (HPV 16 & 18/45)
== END 2025-07-05 17:41 | disposition home or self-care (01) ==
LOC: LBN 17:40
PROVIDERS: PCP Nurse Practitioner Family; Visit Provider Nurse Practitioner Family
DX: Z12.4 Encounter for screening for malignant neoplasm of cervix (principal)
CPT/HCPCS: 88142; 87624

== ENCOUNTER 2025-07-27 03:28 | Outpatient (CLI) | payer MEDICAID, SELFPAY ==
[2025-07-27 15:08] LABS: HCT 34.0 % (36.0-46.0); HGB 10.1 g/dL (11.2-15.7); MCH 23.1 pg (27.0-33.0); MCHC 29.7 % (32.0-36.0); MCV 78 fL (80-95); MPV 10.4 fL (8.0-11.0); Platelet Count 426 10^3/uL (130-400); RBC 4.38 10^6/uL (3.93-5.22); RDW 19.2 % (11.7-14.6); RDW-SD 54.1 fL; WBC 10.34 10^3/uL (4.4-10.8)
[2025-07-27 16:29] LABS: Ferritin 6 ng/mL (8-252); Iron 31 ug/dL (50-170)
== END 2025-07-27 03:29 | disposition home or self-care (01) ==
LOC: LBO 03:28
PROVIDERS: PCP Nurse Practitioner Family; Visit Provider Nurse Practitioner Family
DX: D50.0 Iron deficiency anemia secondary to blood loss (chronic) (principal)
CPT/HCPCS: 36415; 85027; 82728; 83540

== ENCOUNTER 2025-07-27 03:56 | Outpatient (CLI) | payer MEDICAID, SELFPAY ==
--- NOTE | 2025-07-27 08:15 | DI.MAMMO_ITS ---
Exam(s) MAMMO SCREENING EXAM: MAMMO SCREENING CLINICAL HISTORY: screening,z12.39 TECHNIQUE: Bilateral full field digital CC and MLO mammographic images were obtained with 3D tomosynthesis and utilizing computer aided detection (CAD). COMPARISON: Comparison is made with prior examinations. FINDINGS: Masses/Architectural Distortion: No suspicious masses or areas of architectural distortion are present. Microcalcifications: No suspicious pleomorphic-type are seen. Skin Thickening/Nipple Retraction: None. IMPRESSION: 1. No significant interval change with no specific features of malignancy noted. 2. Unless there is more urgent need, screening mammography is recommended, as per [employer] [place] [employer] guidelines. BI-RADS Category 1 - Negative Breast Density - Category B - There are scattered areas of fibroglandular density. Breast density Category C or D implies that the patient has dense breast tissue. Dense breast tissue can make it harder to find cancer on a mammogram. Dense breast tissue is also associated with an increased risk of breast cancer. This information about the result of the mammogram report was provided to the patient to raise their awareness. Use this report when you speak with the patient about their risks for breast cancer, which includes their family history. At that time, you may recommend additional screening tests (Ultrasound or MRI) as these tests may add significant information. A negative radiographic report should not delay biopsy if a dominant or clinically suspicious mass is present. Up to ten percent of cancers are not identified on mammography. A negative report may reinforce clinical impression. Adenosis and dense breasts may obscure an underlying neoplasm. False positive reports average 6 to 10%. Patient will receive a letter notifying them of these results.
== END 2025-07-27 04:16 ==
LOC: DI 03:56
PROVIDERS: PCP Nurse Practitioner Family; Visit Provider Nurse Practitioner Family
DX: Z12.31 Encounter for screening mammogram for malignant neoplasm of breast (principal)
CPT/HCPCS: 77063; 77067